=== PATIENT | male | born 1945 | race Caucasian/White ===

== ENCOUNTER 2017-01-27 12:55 | Emergency (ER) | payer MEDICARE, BC ==
[2017-01-27] MEDS ORDERED: NS 0.9% 1000 ML* 1,000 ML IV ONE ×2 (13:42→17:49)
[2017-01-27 14:44] LABS: Hematocrit 44 % (42-52); Hemoglobin 14.5 g/dl (14.0-18.0); Mean Corpuscular HGB Conc 33 g/dl (31-36); Mean Corpuscular Hemoglobin 26 pg (27-31); Mean Corpuscular Volume 81 fL (80-94); Mean Platelet Volume 8 um3 (7.4-10.4); Red Blood Count 5.51 10^6/ul (4.0-5.4); Red Cell Distribution Width 15 % (10.5-15); White Blood Count 10.5 10^3/ul (3.5-10.8)
[2017-01-27 14:46] LABS: Add Diff/Slide Review? Slide Review Added; Comments Flag Yes
[2017-01-27 15:05] LABS: Albumin 3.8 g/dL (3.2-5.2); BUN/Creatinine Ratio 17.7 (8-20); Calcium 9.1 mg/dL (8.6-10.3); EGFR African American 82.3 (>60); Globulin 2.8 g/dL (2-4); Potassium 3.7 mmol/L (3.5-5.0); Total Bilirubin 0.7 mg/dL (0.2-1.0); Total Protein 6.6 g/dL (6.4-8.9)
[2017-01-27] MEDS ORDERED: Iohexol 300* (CONTRAST) 10 ML SDV IV ONE (15:22)
[2017-01-27 15:39] LABS: TSH (Thyroid Stimulating Horm) 0.16 mcIU/mL (0.34-5.60)
[2017-01-27 15:46] LABS: Free T4 0.84 ng/dL (0.61-1.12)
--- NOTE | 2017-01-27 15:49 | RAD ---
CLINICAL HISTORY: Hypotension, abdominal pain COMPARISON: June 02, 2015 TECHNIQUE: Multiple contiguous axial CT scans were obtained of the abdomen and pelvis after the administration of intravenous contrast. Coronal and sagittal multiplanar reformations are submitted for review. Oral contrast was administered. Delayed images were obtained through the abdomen and pelvis. FINDINGS: LUNG BASES: There is minimal dependent atelectasis of the right lung base LIVER: The liver is normal in shape, size, contour, and attenuation. BILE DUCTS: There is no intrahepatic or extrahepatic biliary dilatation. GALLBLADDER: The gallbladder is normal, without pericholecystic inflammatory change. PANCREAS: The pancreas is normal, without mass or ductal dilatation. SPLEEN: Normal in size and appearance. UPPER GI TRACT: Evaluation of the gastrointestinal tract is limited by incomplete gastric distention. There is a 2.5 cm diverticulum of the second stage of the duodenum. SMALL BOWEL AND MESENTERY: An ileostomy is noted. There is no obstruction. COLON: The patient appears to be status post colectomy. ADRENALS: Normal bilaterally. KIDNEYS: There is a stable left renal cyst. There is no appreciable hydronephrosis or nephrolithiasis. BLADDER: The bladder is smooth in contour. PELVIC ORGANS: The prostate is diffusely enlarged. The seminal vesicles are symmetric. AORTA: There is calcific atherosclerotic disease of the abdominal aorta and its branches, without aneurysmal dilatation IVC: Unremarkable LYMPH NODES: There is no lymphadenopathy by size criteria. ABDOMINAL WALL: There is an ileostomy. BONES AND SOFT TISSUES: Degenerative changes are noted OTHER: None IMPRESSION: 1. STATUS POST COLECTOMY AND ILEOSTOMY. 2. NO OBSTRUCTION. 3. ENLARGED PROSTATE. 4. ATHEROSCLEROSIS. 5. NO ACUTE CT PATHOLOGY OF THE VISUALIZED ABDOMEN OR PELVIS
[2017-01-27 16:10] LABS: Urine Bacteria Absent (Absent); Urine Bilirubin Negative (Negative); Urine Glucose Negative (Negative); Urine Nitrite Negative (Negative)
[2017-01-27] MEDS ORDERED: Hydrocortisone INJ* 250 MG VIAL IV ONE (16:30)
[2017-01-27] MEDS ORDERED: Hydrocortisone INJ* 100 MG VIAL IV ONE (17:32)
--- NOTE | 2017-01-27 17:52 | RAD ---
INDICATION: Fever COMPARISON: Similar chest x-ray April 08, 2016 TECHNIQUE: PA and lateral views of the chest were obtained. FINDINGS: The heart and mediastinum are normal in size and contour. Stable calcified atherosclerosis is seen overlying the arch of the aorta. The lungs are grossly clear. There is no evidence of large pleural effusion. Visualized bones are normal for the patient's age. There is no radiographic evidence of free air beneath the diaphragm IMPRESSION: No radiographic evidence of acute cardiopulmonary disease.
[2017-01-27] MEDS ORDERED: Ondansetron TAB* 4 MG PO ONE (19:06)
[2017-01-27] MEDS ORDERED: Ondansetron ODT TAB* 4 MG ONE (19:06)
[2017-01-27 19:26] VITALS: BP 114/62
--- NOTE | 2017-01-27 23:35 | CONS ---
CONSULTATION REPORT: DATE OF CONSULT: 01/27/17 REQUESTING PHYSICIAN FOR CONSULT: Dr. Bernal. REASON FOR MEDICAL CONSULT: Evaluation for admission. HISTORY OF PRESENT ILLNESS: Mr. Alexandra is a 71-year-old male patient. He has a history of hyperlipidemia, Crohn's, Waldenstrom's macroglobulinemia, nephrolithiasis, primary sclerosing cholangitis, and a history of panhypopituitarism. He came in to the ER today. He says that yesterday, he was at an event. He was networking, he was talking a lot to different veterans , and unfortunately, he thinks he did not drink enough water. He typically drinks 4 to 6 pints of water a day. He only had 1 bottle during his event. He noticed that his urine output and ileostomy output had decreased significantly. He went home. He drank some water. He woke up in the morning, today had a stomach ache. He said the top part of his stomach was aching and felt crampy. He denied any fevers or chills, but he says the pain was discouraging. He actually tried to go to [place]. He had breakfast and he turned around and came back from [place]. When he got home, he still was not feeling good. So, he asked his to take him to the hospital to be evaluated. When he got in the car, he vomited. He threw up his hydrocortisone pill. He was concerned that he was pretty dehydrated. So, he decided to come in to the ER. He denied having any fevers or chills. He vomited once. He denied having any increased output. He said he had decreased output actually from the ileostomy and he came in. It was noted that he was hypotensive and there was concern because of his adrenal insufficiency and the fact that he appeared to be hypotensive and maybe had a viral gastroenteritis. So, we were asked to evaluate in consult for admission. PAST MEDICAL HISTORY: Significant for: 1. Hyperlipidemia. 2. Crohn's. 3. Waldenstrom's macroglobulinemia. 4. Nephrolithiasis. 5. Primary sclerosing cholangitis. 6. Panhypopituitarism. PAST SURGICAL HISTORY: The patient has had: 1. Ileostomy. 2. Appendectomy. 3. He has had partial pituitary tumor removal. 4. He has had cataracts. MEDICATIONS: Home meds according to his recall include: 1. Hydrocortisone, he takes 15 mg in the morning, 15 mg at noon, and 5 at bedtime. 2. He takes 1000 mg p.o. q.6 hours of Tylenol. 3. He takes calcium 1 tablet p.o. daily. 4. Vitamin C 500 mg daily. 5. Glucosamine 1000 mg daily. 6. Fluorouracil 5% topically daily. 7. Vitamin D 1000 units p.o. daily. 8. Maalox 600 mg p.o. daily as needed. 9. Synthroid 112 mcg daily. 10. Salicylic acid 1 application topically every other day as needed. 11. Multivitamin 1 tablet daily. 12. Toprol 25 mg daily. 13. Saline 0.65% both nares every 6 hours. ALLERGIES TO MEDICATIONS: Include no known drug allergies. FAMILY HISTORY: His mother had a history of CHF and TIA. Father had a stroke and diabetes. SOCIAL HISTORY: He does not smoke. Does not drink. Surrogate decision maker is his . REVIEW OF SYSTEMS: There is no documented fever. He denied having significant weight change. There was no double vision. He denies having any ear discharge. There was no rhinorrhea. No sore throat. No thyroid enlargement. Denies having any chest pain. There is no orthopnea, no nocturnal dyspnea. There was no abdominal pain. There was no nausea, no vomiting. No dysuria, no frequency. There was no loss of consciousness. No pruritus and no skin ulcerations. Review of 14 systems completed, all others negative. PHYSICAL EXAM: Initially when he came in, blood pressure of 94/55, now his blood pressure 108/61; pulse 66; respirations 18; O2 sat 96%; temperature 98.2. Generally, at this time, Mr. Alexandra is a 71-year-old male patient. He appears to be well nourished, well developed. He is sitting in the ER stretcher. He does not appear to be in any acute distress. HEENT: Head is atraumatic and normocephalic. Eyes: EOMs intact. Sclerae are anicteric and not pale. Throat : Oral mucosa appeared to be moist. No oropharyngeal erythema. Neck was supple. Heart: Sounds S1, S2. Regular rate and rhythm. No murmurs, rubs, or gallops. Lungs were clear to auscultation bilaterally. He had no wheezes, rales, or rhonchi. Abdomen was soft, flat, nontender. Bowel sounds present. Extremities: Pulses were 2+ throughout. He is able to move all 4 extremities with 5/5 strength. Neurologically, he is awake, he is alert and oriented x3. Tongue midline. Outfitter Cabin are equal. He had no gross focal deficits. His skin is intact. DIAGNOSTIC STUDIES/LAB DATA: Today revealed a WBC 10.5, RBC of 5.51, hemoglobin was 14.5, his hematocrit was 44, platelet count 153. Sodium was 138 , potassium 3.7, chloride of 106, bicarb 23, BUN 20, creatinine 1.13, glucose 97 , lactate 1.9, calcium 9.1. Total bili 0.7, AST 45, ALT 33, alk phos 75. Albumin 3.8, lipase 124. TSH of 0.16. Urine showed 1+ blood, 1+ rbc's. Serology is pending. He had a chest x-ray obtained today and on my review, I did not appreciate any acute disease. No radiographic evidence for acute cardiopulmonary disease. He did have an abdominal pelvis CT as well which revealed status post colectomy and ileostomy, no obstruction, enlarged prostate, atherosclerosis. No acute CT pathology of the visualized abdomen or pelvis. Old medical records were reviewed. ASSESSMENT AND PLAN: Mr. Alexandra is a 71-year-old male patient coming in to the ER today with complaints of abdominal discomfort with vomiting x1, found to be hypotensive in the ER, now responding to IV fluids. We were asked to evaluate in consult because of concern for hypotension and gastroenteritis. Recommendation at this point are: Dehydration: I suspect the culprit of why the patient was feeling lightheaded today was that he was probably dehydrated. He freely admits that he did not drink enough and his output was decreased. He says he was concerned because of the abdominal discomfort, which may be gastroenteritis. So, I think giving him 2 L of fluid which the ER has done, he has been responsive. He is eating now. As long as he eats and tolerates the food now that we are giving him, I think he will be safely discharged and I had told him to increase his hydrocortisone, double it for the next 2 days, and then have close followup with his primary. For his other chronic medical issues at this point, they appear to be stable. I will continue his medications as prescribed, follow up with his primary. I did recommend that he could go home with a double dose of his hydrocortisone and then follow up with Dr. Casas. I discussed the plan of care my attending, Dr. Agrawal; she is in agreement. TIME SPENT: On the consult was 60 minutes; greater than half the time was spent [id number] with the patient obtaining my history and physical, other half the time spent going over the plan of care with the patient and implementing plan of care. I did discuss the plan of care with my attending, Dr. Agrawal; she is in agreement. JULIENNE CASTRO NP ADDENDUM TO CONSULTATION REPORT: DATE OF CONSULT: 01/27/17 Mr. Alexandra is a 71-year-old male with history of panhypopituitarism, adrenal insufficiency as well as Waldenstrom macroglobulinemia. The patient also has ileostomy. He presented today with an apparent episode of abdominal pain and decreased stoma output. The patient vomited when en route to the hospital. His CT of the abdomen is unremarkable. He was hypotensive when he arrived to the hospital and that resolved after intravenous fluid hydration. His laboratory values are grossly unremarkable apart from very mild elevation of lipase. The patient at this point feels good and he wishes to go home. Most likely, the patient tolerates diet and fluids well after that. He is going to be discharged by one of the ER physicians. Please also note that the patient already doubled the dose of hydrocortisone as was previously directed by Dr. Narayan in the case of sickness. For further details the patient's presentation and plan, please see consultation report dictated by Julienne Castro NP, on 01/27/17 with which I agree. Matilda Agrawal MD CC: Dr. Casas; Dr. San; Dr. Narayan* [id number]/[facility] #: [id number]/[facility]PS #: [id number] [facility]ITALMick
--- NOTE | 2017-01-28 02:14 | CONS ---
CONSULTATION REPORT: DATE OF CONSULT: 01/27/17 ADDENDUM: Mr. Alexandra is a 71-year-old male with history of panhypopituitarism, adrenal insufficienc y as well as Waldenstrom macroglobulinemia. The patient also has ileostomy. He presented today wit h an apparent episode of abdominal pain and decreased stoma output. The patient vomited when en rou te to the hospital. His CT of the abdomen is unremarkable. He was hypotensive when he arrived to [facility] and that resolved after intravenous fluid hydration. His laboratory values are grossly unremarkable apart from very mild elevation of lipase. The patient at this point feels good and he wishes to go home. Most likely, the patient tolerates diet and fluids well after that. He is going to be discharged by one of the ER physicians. Please also note that the patient already doubled the dose of hydrocortisone as was previously direc tray by Dr. Narayan in the case of sickness. For further details the patient's presentation and plan, please see consultation report dictated by Jesus Mishra NP, on 01/27/17 with which I agree. [id number]/[facility] #: [id number]
--- NOTE | 2017-02-16 14:22 | ED ---
Alphonso Patino Anna, scribed for Bhargav Bernal MD on 01/27/17 at 1343 . Abdominal Pain/Male - HPI Summary HPI Summary: Patient is a 71 y/o male coming to [facility] presenting with lower middle abdominal pain that began today. The pain worsened, and he started shaking due to the pain , accompanied by chills and myalgia. His temperature elijah to 101.3 F, and he felt as though his BP dropped. He felt weak and dehydrated. He felt as if he could not drink because of the pain. He took his hydrocortisone medication, which did not alleviate the pain. He experienced one episode of emesis, and the pain was alleviated at that time. He is steroid-dependent because of a history of a pituitary tumor. His BP is usually 120/72. He has a little bit of ileostomy output and no urine output. Denies diarrhea, sores, and cough. He had a similar episode one week ago with intermittent shaking because of the pain, accompanied by chills. At that time, it was alleviated by wrapping up with blankets. Todays episode was worse than the previous episode. He is unaware of the cause or trigger. The patient is followed by Dr. San, oncologist, and Dr. Thakur, portfolio mgr. His history is significant for Crohns disease, an ileostomy, a pituitary tumor (removed), and Waldenstroms disease. His history is significant for a SBO, which was alleviated by the use of IV fluids. The patient had a flu shot this year. Patient medications were reviewed this visit. - History of Current Complaint Chief Complaint: EDAbdPain Stated Complaint: VOMITING,FEVER Time Seen by Provider: 01/27/17 13:40 Hx Obtained From: Patient, Family/Ham Facer - Accompanied by Onset/Duration: Resolved Timing: Constant Severity Initially: Moderate Severity Currently: None - Allergies/Home Medications Allergies/Adverse Reactions: Allergies Allergy/AdvReac Type Severity Reaction Status Date / Time SULFA AdvReac Intermediate VOMIT Uncoded 04/08/16 20:33 Home Medications: Home Medications Acetaminophen [Acetaminophen Extra Stren] 1,000 mg PO Q4HR PRN 01/27/17 [ History Confirmed 01/27/17] Ascorbic Acid TAB* [Vitamin C TAB*] 500 mg PO DAILY 01/27/17 [History Confirmed 01/27/17] Calcium Carbonate-Vitamin D [Calcium 600 + D] 1 tab PO DAILY 01/27/17 [History Confirmed 01/27/17] Glucosamine CAP (NF) 1,000 cap PO DAILY 01/27/17 [History Confirmed 01/27/17] Hydrocortisone TAB* [Cortef TAB*] 15 mg PO BID 01/27/17 [History Confirmed 01/27] Hydrocortisone TAB* [Cortef*] 5 mg PO QPM 01/27/17 [History Confirmed 01/27/17] Levothyroxine TAB* [Synthroid TAB*] 112 mcg PO DAILY 01/27/17 [History Confirmed 01/27/17] Metoprolol Succinate XL TAB* [Toprol XL TAB*] 25 mg PO DAILY 01/27/17 [History Confirmed 01/27/17] PMH/Surg Hx/FS Hx/Imm Hx Endocrine/Hematology History: Reports: Hx Blood Disorders - hx of leukemia , Waldenstroms disease, now in remission, Hx Thyroid Disease - HYPO, Other Endocrine/Hematological Disorders - waldenstrom macroglobulinemia Denies: Hx Diabetes Cardiovascular History: Reports: Hx Hypercholesterolemia Denies: Hx Hypertension, Hx Pacemaker/ICD, Other Cardiovascular Problems/ Disorders Respiratory History: Reports: Hx Sleep Apnea - NOT TESTED, Other Respiratory Problems/Disorders - HX CHILLS, UNSURE WHY, TAKES IBUPROFEN OR TYLENOL, THAN OK Denies: Hx Asthma GI History: Reports: Hx Crohn's Disease, Hx Hiatal Hernia, Other GI Disorders - 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, 1988 History: Reports: Hx Kidney Stones - IN PAST, Other Problems/Disorders - stones Denies: Hx Renal Disease Musculoskeletal History: Reports: Hx Osteoporosis - mild, Other Musculoskeletal History Denies: Hx Rheumatoid Arthritis Sensory History: Reports: Hx Contacts or Glasses, Hx Hearing Aid - does not wear , Hx Hearing Problem Denies: Hx Cataracts Opthamlomology History: Reports: Hx Contacts or Glasses Denies: Hx Cataracts Neurological History: Reports: Other Neuro Impairments/Disorders - INFREQUENT VIRTIGO Psychiatric History: Denies: Hx Panic Disorder - Cancer History Cancer Type, Location and Year: 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 skin graft interior nose Hx Anesthesia Reactions: Yes - SLOW TO WAKE UP - Immunization History Date of Tetanus Vaccine: up to date per pt Infectious Disease History: No Infectious Disease History: Denies: Traveled Outside the [place] in Last 30 Days - Family History Known Family History: Positive: Other - osteoperosis - Social History Lives: With Family Alcohol Use: None Alcohol Amount: 1 BEER PER MONTH Substance Use Type: Reports: None Smoking Status (MU): Former Smoker Type: Cigarettes Review of Systems Constitutional: Other - shaking, low BP Positive: Fever, Chills Negative: Erythema Negative: Sore Throat Negative: Chest Pain Negative: Shortness Of Breath, Cough Positive: Abdominal Pain, Vomiting. Negative: Diarrhea, Nausea Negative: dysuria, hematuria Positive: Myalgia. Negative: Edema Skin: Other - Denies sores Negative: Rash Neurological: Other - Denies dizziness Positive: Weakness All Other Systems Reviewed And Are Negative: Yes Physical Exam - Summary Physical Exam Summary: Constitutional: Well-developed, Well-nourished, Alert. (-) Distressed, Minimal ileostomy bag output Skin: Warm, Dry HENT: Normocephalic; Atraumatic Eyes: Conjunctiva normal Neck: Musculoskeletal ROM normal neck. (-) JVD, (-) Stridor, (-) Tracheal deviation Cardio: Rhythm regular, rate normal, Heart sounds normal; Intact distal pulses; The pedal pulses are 2+ and symmetric. Radial pulses are 2+ and symmetric. (-) Murmur Pulmonary/Chest wall: Effort normal. (-) Respiratory distress, (-) Wheezes, (-) Rales Abd: Soft, (-) Tenderness, (-) Distension, (-) Guarding, (-) Rebound Musculoskeletal: (-) Edema Lymph: (-) Cervical adenopathy Neuro: Alert, Oriented x3 Psych: Mood and affect Normal Triage Information Reviewed: Yes Vital Signs On Initial Exam: Initial Vitals Temp Pulse Resp BP Pulse Ox 98.5 F 87 20 99/55 97 01/27/17 13:02 01/27/17 13:02 01/27/17 13:02 01/27/17 13:02 01/27/17 13:02 Vital Signs Reviewed: Yes - Abel Coma Scale Coma Scale Total: 15 Diagnostics - Vital Signs Vital Signs Temp Pulse Resp BP Pulse Ox 01/27/17 13:35 86 95 01/27/17 13:33 93/53 01/27/17 13:04 98.2 F 93 20 99/55 96 01/27/17 13:02 98.5 F 87 20 99/55 97 - Laboratory Result Diagrams: 01/27/17 14:30 01/27/17 14:30 Lab Statement: Any lab studies that have been ordered have been reviewed, and results considered in the medical decision making process. - Radiology CXR Xray Interpretation: No Acute Changes Radiology Interpretation Completed By: Radiologist - IMPRESSION: No radiographic evidence of acute cardiopulmonary disease. - CT CT abd/pel CT Interpretation: No Acute Changes CT Interpretation Completed By: Radiologist - IMPRESSION: 1. STATUS POST COLECTOMY AND ILEOSTOMY. 2. NO OBSTRUCTION. 3. ENLARGED PROSTATE. 4. ATHEROSCLEROSIS. 5. NO ACUTE CT PATHOLOGY OF THE VISUALIZED ABDOMEN OR PELVIS Re-Evaluation - Re-Evaluation First Eval Re-Evaluation Time: 16:26 Comment: Pt is feeling lightheaded. IV bag disconnected from CT. Updated pt and family on results. Will order IV cortisone. Second Eval Re-Evaluation Time: 17:55 Comment: Discussed results and plan of care with patient and family. Patient and family are agreeable with plan. Third Eval Re-Evaluation Time: 18:51 Change: Improved Comment: Patient is observed to be ambulatory and feeling well. Abdominal Pain Fem Course/Dx - Course Assessment/Plan: Patient is a 71 y/o male coming to [facility] presenting with lower middle abdominal pain that began today, accompanied by fever, chills, myalgia, weakness, emesis, low BP. CT abd/pel to r/o SBO reveals no obstruction and acute CT pathology. UA reveals 1+ blood and 1+ RBC. Labs reveal RBC of 5.51, MCH of 26, AST of 45, Lipase of 124, TSH of 0.16. CXR reveals no radiographic evidence of acute cardiopulmonary disease. Discussed patient care with Dr. Jenkins, who accepts the patient for admission. After consultation with DIVYA Mishra, patient and family opt to be discharged home. - Diagnoses Provider Diagnoses: Adrenal insufficiency, Viral illness - Provider Notifications Discussed Care Of Patient With: Dr. Jaramillo (primary care physician) at 1724. Pt only sees Dr. Narayan for endocrinology. Dr. Jenkins (hospitalist) at 1746. Agrees to accept patient for admission. Discharge - Discharge Plan Condition: Stable Disposition: HOME Patient Education Materials: Abdominal Pain (ED) Referrals: Jose Alfredo Casas MD [Primary Care Provider] - Additional Instructions: Follow up with primary care provider within 48 hours. RETURN TO THE EMERGENCY DEPARTMENT FOR CHANGING OR WORSENING SYMPTOMS. The documentation as recorded by the Alphonso levi Anna accurately reflects the service I personally performed and the decisions made by , Bhargav Bernal MD.
== END 2017-01-27 19:24 | disposition home or self-care (01) ==
LOC: ED 12:55
DX: E27.40 Unspecified adrenocortical insufficiency (principal); B34.9 Viral infection, unspecified; R10.30 Lower abdominal pain, unspecified; R11.10 Vomiting, unspecified; R50.9 Fever, unspecified; R53.1 Weakness; Z87.891 Personal history of nicotine dependence
CPT/HCPCS: 36415; 71020; 74177; 80053; 81003; 81015; 82530; 82533; 83605; 83690; 84439; 84443; 85025; 87502; 96374; 99283; A9270-GY; J1720; Q9967

== ENCOUNTER 2017-11-28 10:13 | Emergency (ER) | payer MEDICARE, BC ==
[2017-11-28] MEDS ORDERED: Aspirin Low Dose CHEW TAB* 81 MG PO ONE (10:45)
[2017-11-28 11:11] LABS: ABS Basophils 0 10^3/ul (0-0.2); ABS Eosinophils 0.4 10^3/ul (0-0.6); ABS Lymphocytes 0.9 10^3/ul (1.0-4.8); ABS Monocytes 0.8 10^3/ul (0-0.8); ABS Neutrophils 2.8 10^3/ul (1.5-7.7); ABS Nucleated RBC 0 10^3/ul; Eosinophil % 8.9 % (0-6); Hematocrit 44 % (42-52); Hemoglobin 14.9 g/dl (14.0-18.0); Lymphocyte % 18.5 % (25-47); Mean Corpuscular HGB Conc 34 g/dl (31-36); Mean Corpuscular Hemoglobin 27 pg (27-31); Mean Corpuscular Volume 81 fL (80-94); Mean Platelet Volume 7.9 um3 (7.4-10.4); Nucleated Red Blood Cells % 0.1; Platelet Count 187 10^3/ul (150-450); Red Blood Count 5.48 10^6/ul (4.0-5.4); Red Cell Distribution Width 15 % (10.5-15)
[2017-11-28 11:22] LABS: INR 0.91 (0.77-1.02)
--- OUTSIDE RECORDS SUMMARY | 2017-11-28 11:40 | XMS REPORT ---
:1945 External Reference #:[id number] Author Organization [facility] Address [address] [place] [address] Phone [phone] Care Team Providers Name Role Phone Wei Cardona DDS Care Team Information Butcher All Round Unavailable Jose Alfredo Casas Primary Care Physician Unavailable Payers Type Date Identification Numbers Payment Provider Subscriber Medicare Primary Policy Number: [id number] [place] [facility] Randell Alexandra PayID: [id number] [address] [place] [address] Medigap Part B Policy Number: [id number] [place] [facility] Randell Alexandra PayID: [id number] [address] [place] [address] Problems Description No Information Family History Date Family Member(s) Problem(s) Comments General Cancer General Diabetes General Heart Disease Father Diabetes Father Heart Attack Father Heart Disease Father Colon Cancer Father Stroke Mother Pancrititis Mother Heart Murmur First Brother High Blood Pressure Paternal Grandfather Diabetes Paternal Grandfather Heart Attack Paternal Grandfather Heart Disease Paternal Grandfather Stroke Paternal Grandmother Diabetes Paternal Grandmother Breast Cancer Social History Type Date Description Comments Occupation Career Consulant Cigarette Use Never Smoked Cigarettes Cigars Never Smoked Cigars Pipe Former Pipe Smoker, Smoked 2 Pipes Daily quit age 28 Smokeless Tobacco Never Used Smokeless Tobacco ETOH Use Current Alcohol Use Occasionally Smoking Patient is a former smoker Allergies, Adverse Reactions, Alerts Date Description Reaction Status Severity Comments 05/31/2007 NKDA active Medications Medication Date Status Form Strength Qnty SIG Indications Ordering Provider Androgel Pump / Active Gel 20.25mg/Ac Zurdo Narayan 0000 t (1.62%) M.DAzalia Hydrocortisone / Active Tablets 5mg Zurdo Narayan 0000 M.D. Levothyroxine 00/ Active Tablets 125mcg Zurdo Narayan Sodium 0000 M.D. Fish Oil / Active Capsules 1200mg 1 by Unknown Burp-Less 0000 mouth every day Glucosamine / Active Capsules 1500Com 1 by Unknown Chondroitin 1500 0000 mouth Complex every day Vitamin C / Active Capsules 500mg 1 by Unknown 0000 mouth twice a day Vitamin D / Active Tablets 1000Unit 1 by Unknown 0000 mouth every day Magnesium / Active Tablets 250mg daily Unknown 0000 Calcium 600+D / Active Tablets 600-400mg- Unknown High Potency 0000 Unit Augmentin 03/28/ Hx Tablets 875-125mg 20tabs 1 po bid 784.7 Antoine Mcgovern 2010 - Christaina 11/12/ Tim 2017 Keflex 07/06/ Hx Capsules 500mg 7days 1 by 784.7 Antoine Mcgovern 2006 - mouth 3 Christiana 03/28/ times a Tim 2010 day Bacitracin 05/31/ Hx 1Tube apply to 784.Nallely Mcgovern Ointment 2006 - rim of Christiana Tim bang 2006 nostril 2 x day. Meclizine HCL / Hx Unknown - 2010 Amoxicillin / Hx Unknown - 2010 Hydrocodone-Apap / Hx Unknown - 2010 Avodart / Hx Unknown 0000 - 2017 Vital Signs Date Vital Result Comment 11/13/2017 Weight 206.00 lb Weight in kg's 93.442 Height 70 inches 5'10" Height in cm's 177.8 cm BMI (Body Mass Index) 29.6 kg/m2 03/28/2011 BP Systolic 145 mmHg BP Diastolic 98 mmHg Heart Rate 75 /min Respiratory Rate 16 /min 06/22/2007 BP Systolic 107 mmHg BP Diastolic 72 mmHg Heart Rate 86 /min Respiratory Rate 16 /min 05/31/2007 BP Systolic 132 mmHg BP Diastolic 82 mmHg Heart Rate 91 /min Respiratory Rate 16 /min Results Test Date Test Result H/L Range Note Comp Metabolic Panel 03/28/2011 Sodium 135 mmol/L 135-145 Potassium 3.9 mmol/L 3.5-5.0 Chloride 103 mmol/L 101-111 Co2 (Carbon Dioxide) 22.0 mmol/L 22-32 Anion Gap 10.0 mmol/L 2-11 1 Glucose 92 mg/dL 70-100 BUN 19 mg/dL 6-24 Creatinine 1.10 mg/dL 0.50-1.40 One Over Creatinine 0.90 BUN/Creatinine Ratio 17.3 8-20 Calcium 10.0 mg/dL High 8.1-9.9 Total Protein 11.7 GM/DL High 6.2-8.1 Albumin 3.2 GM/DL 3.2-5.2 Globulin 8.5 GM/DL High 2-4 Albumin/Globulin Ratio 0.4 Low 1-3 Bilirubin Total 0.6 mg/dL 0.4-1.5 2 Alkaline Phosphatase 48 U/L 39-117 Alt (SGPT) 24 U/L 17-63 Ast (Sgot) 25 U/L 12-42 eGFR Non- 67.2 > 60 eGFR 86.4 > 60 3 CBC With Manual Diff 03/28/2011 White Blood Count 4.0 CUMM Low 4.8-10.8 Red Cell Count 3.47 CUMM Low 4.6-6.2 Hemoglobin 10.6 g/dL Low 14.0-18.0 Hematocrit 31 % Low 42-52 Mean Corpuscular Volume 89 um3 80-94 Mean Corpuscular Hemoglob 31 pg 27-31 Mean Corpuscular HGB Cone 35 g/dL 32-36 Redcell Distribution WDTH 15 % 10.5-15 Platelet Count 203 CUMM 150-450 Mean Platelet Volume 6.9 um3 Low 7.4-10.4 Polysegmented Neutrophil 73 % 38-83 Lymphocyte 18 % Low 25-47 Monocyte 8 % 0-13 Eosinophil 1 % 0-6 Absolute Neutrophil Count 2.9 Manual Diff Comments ROULEAUX Anisocytosis SLIGHT Immunoglobulins Serum Quant 03/28/2011 Iga 68 mg/dL 61-356 Igm 7230 mg/dL 37-286 Igg 350 mg/dL 767-1590 4 Protein Electrophoresis Serum 03/28/2011 Albumin 3.86 GM/DL 3.0-4.35 Alpha 1 0.32 GM/DL 0.09-0.33 Alpha 2 1.07 GM/DL 0.59-1.18 Beta 0.72 GM/DL 0.68-1.02 Gamma 5.43 GM/DL High 0.76-1.60 Albumin % 33.9 % Low 46-63 Alpha 1 % 2.8 % 1.2-5.3 Alpha 2 % 9.4 % 9-17 Beta % 6.3 % Low 10-16 Gamma % 47.6 % High 12-22 A/G Ratio 0.5 Low 0.9-2 Total Protein 11.4 GM/DL High 6.2-8.1 M Blue Gamma Region 4.43 GM/DL Spep Comments (SEE NOTE) 5 Laboratory test finding 03/28/2011 Viscosity 3.3 cpoise <=1.5 6 1 Anion gap measurement may be of limited value in the presence of any alkalosis, especially in a combined acid base disorder. . 2 A metabolite of Naproxen, O-desmethylnaproxen, has been shown to interfere with the [place] method for measuring total bilirubin. Samples from patients who have taken Naproxen have shown spurious elevation in total bilirubin levels. 3 Because ethnic data is not always readily available, this report includes an eGFR for both -Americans and non- Americans. The National Kidney Disease Education Program (NKDEP) does not endorse the use of the MDRD equation for patients that are not between the ages of 18 and 70, are , have extremes of body size, muscle mass, or nutritional status, or are non- or non-. According to the National Kidney Foundation, irrespective of diagnosis, the stage of the disease is based on the level of kidney function: Stage Description GFR(mL/min/1.73 m(2)) 1 Kidney damage with normal or decreased GFR 90 2 Kidney damage with mild decrease in GFR 60-89 3 Moderate decrease in GFR 30-59 4 Severe decrease in GFR 15-29 5 Kidney failure <15 (or dialysis) 4 Test Performed by: [facility] Dpt of Lab Med and Pathology [address] [place] [address] Fingerprint Expert: Saleem Bergman III, M.D. 5 KNOWN IGM KAPPA MONOCLPNAL PROTEIN 6 This test was developed and its performance characteristics determined by Laboratory Medicine and Pathology, [facility]. It has not been cleared or approved by the U.S. Food and Drug Administration. Test Performed by: [facility] Dpt of Lab Med and Pathology [address] [place] [address] Fingerprint Expert: Saleem Bergman III, M.D. Procedures Date CPT Code Description Status 12/06/2011 95134 Nasal Endoscopy, Diagnostic Completed 12/06/2011 72328 Cautery Of Mucosa Of Turbinates Completed 03/28/2011 92047 Contol Nasal Hemorrhage, Anterior, Simple Completed 08/01/2007 51976 Septal Dermatoplasty Completed 08/01/2007 49833 Skin Graft Donor Site Completed 07/21/2007 01668 Control Nasal Hemorrhage (Extensive Cautery/Packing) Completed Any Method 07/08/2007 47141 Endoscopic Nasal Cautery Completed 06/22/2007 27524 Endoscopic Nasal Cautery Completed 06/07/2007 39395 Endoscopic Nasal Cautery Completed 05/31/2007 07416 Contol Nasal Hemorrhage, Anterior, Simple Completed Encounters Type Date Location Provider CPT E/M Dx Office Visit 11/13/2017 2:45p Luzma,After 09/04/07 Antoine Villeda 91752 K13.3 M.D. Office Visit 03/28/2011 2:30p Luzma,After 09/04/07 [place] [address] 784.7 200.80 Office Visit 2007 3:30p Luzma,After 09/04/07 [place] [address] 784.7 Office Visit 07/16/2007 10:15a Luzma,After 09/04/07 Antoine Villeda 68729 784.7 M.D. Office Visit 07/12/2007 2:30p Luzma,After 09/04/07 [place] [address] 784.7 200.80 Office Visit 06/28/2007 1:00p Luzma,After 09/04/07 [place] [address] 784.7 200.80 Office Visit 06/22/2007 10:30a Luzma,After 09/04/07 [place] [address] 784.7 200.80 Office Visit 06/15/2007 1:00p Luzma,After 09/04/07 Antoine Villeda 41362 784.7 M.D. 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 Cardona who saw roldan discoloration of his tongue and wanted it examined.Today he looks normal. 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
--- NOTE | 2017-11-28 11:56 | RAD ---
HISTORY: Chest pain COMPARISONS: January 27, 2017 VIEWS: 1: frontal portable view of the chest at 11:30 AM FINDINGS: LINES AND TUBES: None. CARDIOMEDIASTINAL SILHOUETTE: The cardiomediastinal silhouette is normal for portable technique. PLEURA: The costophrenic angles are sharp. No pleural abnormalities are noted. LUNG PARENCHYMA: The lungs are clear. ABDOMEN: The upper abdomen is clear. There is no subphrenic gas. BONES AND SOFT TISSUES: No bone or soft tissue abnormalities are noted. IMPRESSION: NO ACTIVE CARDIOPULMONARY DISEASE.
[2017-11-28 12:02] LABS: EGFR Non-African American 55.7 (>60)
[2017-11-28] MEDS ORDERED: Metoprolol Succinate XL TAB* 25 MG PO ONE (13:19)
[2017-11-28 14:52] VITALS: BP 123/91
--- NOTE | 2017-11-28 15:00 | ED ---
Donnell Patino Jennifer, scribed for Neftali Nails on 11/28/17 at 1043 . Palpitations / Dysrhythmia - HPI Summary HPI Summary: The patient is a 72 year old male who complains of 3-4 episodes of palpitations since 08:30 this morning. The patient described that it feels like theres a heavy weight on his chest and he is short of breath. He was getting ready for the day when the first episode occurred. Sitting down alleviated his pain; however, he decided to come to the ED when it began again at around 10:15. He additionally complains of sweatiness but denies nausea, dizziness. He denies chest pain or heaviness in the ED. He adds that he has had this issue before and was previously prescribed Metoprolol. - History of Current Complaint Chief Complaint: EDDysrhythmPalp Time Seen by Provider: 11/28/17 10:34 Hx Obtained From: Patient Onset/Duration: Sudden Onset, Lasting Hours - 2 hours, Other - Denies palpitations in ED Timing: Intermittent Episodes Lasting: - about 3-4 episodes for the past 2 hours Severity Initially: Mild Severity Currently: None Character: Fast, Irregular Aggravating: Nothing Alleviating: Rest Associated Signs & Symptoms: Negative - Dizziness, nausea, Chest Pain - "heavy weight" on chest, Shortness of Breath - Allergy/Home Medications Allergies/Adverse Reactions: Allergies Allergy/AdvReac Type Severity Reaction Status Date / Time No Known Allergies Allergy Verified 11/28/17 10:26 Home Medications: Home Medications Magnesium Oxide TAB* [MagOx 400 TAB*] 325 mg PO DAILY 11/28/17 [History Confirmed 11/28/17] [place]-3 Fatty Acids (Nf) [Fish Oil (NF)] 1,000 mg PO DAILY 11/28/17 [History Confirmed 11/28/17] Testosterone [Androgel] 2 units TD DAILY 11/28/17 [History Confirmed 11/28/17] PMH/Surg Hx/FS Hx/Imm Hx Endocrine/Hematology History: Reports: Hx Blood Disorders - hx of leukemia , now in remission, Hx Thyroid Disease - HYPO, Other Endocrine/Hematological Disorders - waldenstrom macroglobulinemia Denies: Hx Diabetes Cardiovascular History: Reports: Hx Hypercholesterolemia, Other Cardiovascular Problems/Disorders - OCCASSIONAL ARRHYTHMIA Denies: Hx Hypertension, Hx Pacemaker/ICD Respiratory History: Reports: Hx Sleep Apnea - NOT TESTED, Other Respiratory Problems/Disorders - HX CHILLS, UNSURE WHY, TAKES IBUPROFEN OR TYLENOL, THAN OK Denies: Hx Asthma GI History: Reports: Hx Crohn's Disease, Hx Hiatal Hernia, Other GI Disorders - 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, 1988 History: Reports: Hx Kidney Stones - IN PAST, Other Problems/Disorders - stones Denies: Hx Renal Disease Musculoskeletal History: Reports: Hx Osteoporosis - mild, Other Musculoskeletal History Denies: Hx Rheumatoid Arthritis Sensory History: Reports: Hx Contacts or Glasses, Hx Hearing Problem Denies: Hx Cataracts, Hx Hearing Aid Opthamlomology History: Reports: Hx Contacts or Glasses Denies: Hx Cataracts Neurological History: Reports: Other Neuro Impairments/Disorders - INFREQUENT VERTIGO Psychiatric History: Denies: Hx Panic Disorder - Cancer History Cancer Type, Location and Year: waldenstroms non hodgekins lymphoma Hx Chemotherapy: Yes - 09/2011 - Surgical History Surgery Procedure, Year, and Place: appendectomy;. Total colectomy with Ileostomy;. skin graft interior nose;. pituitary tumor removed;. kidney stones removed; Hx Anesthesia Reactions: Yes - SLOW TO WAKE UP - Immunization History Date of Tetanus Vaccine: up to date per pt Infectious Disease History: No Infectious Disease History: Denies: Traveled Outside the [place] in Last 30 Days - Family History Known Family History: Positive: Cardiac Disease - Father, grandfather, Other - osteoporosis - Social History Alcohol Use: None Alcohol Amount: 1 BEER PER MONTH Substance Use Type: Reports: None Smoking Status (MU): Former Smoker Type: Cigarettes Review of Systems Positive: Palpitations, Chest Pain - heaviness Positive: Shortness Of Breath Negative: Nausea Neurological: Negative - Dizziness All Other Systems Reviewed And Are Negative: Yes Physical Exam - Summary Physical Exam Summary: Appearance: Well appearing, no pain distress Skin: warm, dry, reflects adequate perfusion Head/face: normal Eyes: EOMI, NOLAN ENT: normal Neck: supple, non-tender Respiratory: CTA, breath sounds present Cardiovascular: RRR, pulses symmetrical ~ Abdomen: non-tender, soft Bowel: present Musculoskeletal: normal, strength/ROM intact Neuro: normal, sensory motor intact, A&Ox3 Triage Information Reviewed: Yes Vital Signs On Initial Exam: Initial Vitals Temp Pulse Resp BP Pulse Ox 98.2 F 87 20 147/94 100 11/28/17 10:27 11/28/17 10:27 11/28/17 10:27 11/28/17 10:27 11/28/17 10:27 Vital Signs Reviewed: Yes Diagnostics - Vital Signs Vital Signs Temp Pulse Resp BP Pulse Ox 11/28/17 10: 98.2 F 87 20 147/94 100 - Laboratory Lab Results: Lab Results 11/28/17 11/28/17 11/28/17 Range/Units 11:00 11:00 11:00 WBC 5.0 (3.5-10.8) 10^3/ul RBC 5.48 H (4.0-5.4) 10^6/ul Hgb 14.9 (14.0-18.0) g/dl Hct 44 (42-52) % MCV 81 (80-94) fL MCH 27 (27-31) pg MCHC 34 (31-36) g/dl RDW 15 (10.5-15) % Plt Count 187 (150-450) 10^3/ul MPV 7.9 (7.4-10.4) um3 Neut % (Auto) 56.3 (38-83) % Lymph % (Auto) 18.5 L (25-47) % Fillmore % (Auto) 15.6 H (0-7) % Eos % (Auto) 8.9 H (0-6) % Baso % (Auto) 0.7 (0-2) % Absolute Neuts (auto) 2.8 (1.5-7.7) 10^3/ul Absolute Lymphs (auto) 0.9 L (1.0-4.8) 10^3/ul Absolute Monos (auto) 0.8 (0-0.8) 10^3/ul Absolute Eos (auto) 0.4 (0-0.6) 10^3/ul Absolute Basos (auto) 0 (0-0.2) 10^3/ul Absolute Nucleated RBC 0 10^3/ul Nucleated RBC % 0.1 INR (Anticoag Therapy) (0.77-1.02) APTT (26.0-36.3) seconds Sodium 139 (139-145) mmol/L Potassium 4.7 (3.5-5.0) mmol/L Chloride 105 (101-111) mmol/L Carbon Dioxide 27 (22-32) mmol/L Anion Gap 7 (2-11) mmol/L BUN 16 (6-24) mg/dL Creatinine 1.27 H (0.67-1.17) mg/dL Est GFR ( Amer) 71.7 (>60) Est GFR (Non-Af Amer) 55.7 (>60) BUN/Creatinine Ratio 12.6 (8-20) Glucose 110 H (70-100) mg/dL Lactic Acid (0.5-2.0) mmol/L Calcium 10.2 (8.6-10.3) mg/dL Magnesium 2.1 (1.9-2.7) mg/dL Total Bilirubin 0.50 (0.2-1.0) mg/dL AST 21 (13-39) U/L ALT 20 (7-52) U/L Alkaline Phosphatase 47 (34-104) U/L Troponin I 0.00 (<0.04) ng/mL B-Natriuretic Peptide 18 ( - 100) pg/mL Total Protein 7.8 (6.4-8.9) g/dL Albumin 4.1 (3.2-5.2) g/dL Globulin 3.7 (2-4) g/dL Albumin/Globulin Ratio 1.1 (1-3) TSH 0.09 L (0.34-5.60) mcIU/mL 11/28/17 11/28/17 11/28/17 Range/Units 11:00 11:00 13:53 WBC (3.5-10.8) 10^3/ul RBC (4.0-5.4) 10^6/ul Hgb (14.0-18.0) g/dl Hct (42-52) % MCV (80-94) fL MCH (27-31) pg MCHC (31-36) g/dl RDW (10.5-15) % Plt Count (150-450) 10^3/ul MPV (7.4-10.4) um3 Neut % (Auto) (38-83) % Lymph % (Auto) (25-47) % Fill[place] % (Auto) (0-7) % Eos % (Auto) (0-6) % Baso % (Auto) (0-2) % Absolute Neuts (auto) (1.5-7.7) 10^3/ul Absolute Lymphs (auto) (1.0-4.8) 10^3/ul Absolute Monos (auto) (0-0.8) 10^3/ul Absolute Eos (auto) (0-0.6) 10^3/ul Absolute Basos (auto) (0-0.2) 10^3/ul Absolute Nucleated RBC 10^3/ul Nucleated RBC % INR (Anticoag Therapy) 0.91 (0.77-1.02) APTT 35.2 (26.0-36.3) seconds Sodium (139-145) mmol/L Potassium (3.5-5.0) mmol/L Chloride (101-111) mmol/L Carbon Dioxide (22-32) mmol/L Anion Gap (2-11) mmol/L BUN (6-24) mg/dL Creatinine (0.67-1.17) mg/dL Est GFR ( Amer) (>60) Est GFR (Non-Af Amer) (>60) BUN/Creatinine Ratio (8-20) Glucose (70-100) mg/dL Lactic Acid 2.7 H* (0.5-2.0) mmol/L Calcium (8.6-10.3) mg/dL Magnesium (1.9-2.7) mg/dL Total Bilirubin (0.2-1.0) mg/dL AST (13-39) U/L ALT (7-52) U/L Alkaline Phosphatase (34-104) U/L Troponin I 0.01 (<0.04) ng/mL B-Natriuretic Peptide ( - 100) pg/mL Total Protein (6.4-8.9) g/dL Albumin (3.2-5.2) g/dL Globulin (2-4) g/dL Albumin/Globulin Ratio (1-3) TSH (0.34-5.60) mcIU/mL Result Diagrams: 11/28/17 11:00 11/28/17 11:00 Lab Statement: Any lab studies that have been ordered have been reviewed, and results considered in the medical decision making process. - Radiology CXR Xray Interpretation: No Acute Changes - NO ACTIVE CARDIOPULMONARY DISEASE. Dr. Nails has reviewed this report. Radiology Interpretation Completed By: Radiologist - EKG 10:35 Cardiac Rate: NL EKG Rhythm: Sinus Rhythm - 80 BPM EKG Comparison: No Significant Change Course/Dx - Course Course Of Treatment: The patient is a 72 year old male who complains of 3-4 episodes of palpitations since 08:30 this morning. He complains of a heavy weight on his chest and shortness of breath. Bloodwork was obtained. CXR and EKG were obtained. The patient is diagnosed with atypical chest pain, tachycardia, and palpitations. I consulted with Dr. Thakur, cardiology, who recommended starting metaprolol, repeating second cardiac enzyme, discharging the patient, and f/u as outpatient. - Diagnoses Differential Diagnosis/HQI/PQRI: Positive: Coronary Artery Disease, Paroxymal SVT, Other - mi/chf Provider Diagnoses: Atypical chest pain, Tachycardia, Palpitations - Physician Notifications Discussed Care Of Patient With: Everette Thakur Time Discussed With Above Provider: 13:17 Instructed by Provider To: Other - I spoke with Dr. Thakur, cardiology, who recommends that the patient start Metaprolol, repeat second cardiac enzyme, discrhage, and f/u as outpatient. Discharge - Sign-Out/Discharge Documenting (check all that apply): Discharge - Discharge Plan Condition: Stable Disposition: HOME Patient Education Materials: Chest Pain (ED), Heart Palpitations (ED), Tachycardia (ED) Referrals: Everette Thakur MD [Medical Doctor] - As Soon As Possible Additional Instructions: Follow up with Dr. Salazar, cardiology, as soon as possible. Return to the emergency department for any new or worsening symptoms. - Billing Disposition and Condition Condition: STABLE Disposition: HOME The documentation as recorded by the Donnell levi Jennifer accurately reflects the service I personally performed and the decisions made by Jaqui jessica Emmanuel.
== END 2017-11-28 15:18 | disposition home or self-care (01) ==
LOC: ED 10:13
DX: R07.89 Other chest pain (principal); R00.0 Tachycardia, unspecified; R00.2 Palpitations; R06.02 Shortness of breath; Z85.6 Personal history of leukemia; E03.9 Hypothyroidism, unspecified; E78.00 Pure hypercholesterolemia, unspecified; K50.90 Crohn's disease, unspecified, without complications; Z87.442 Personal history of urinary calculi; Z87.891 Personal history of nicotine dependence
CPT/HCPCS: 36415; 71045; 80053; 83605; 83735; 83880; 84443; 84484; 85025; 85610; 85730; 93005; 99284; A9270-GY

== ENCOUNTER 2018-01-23 06:15 | Observation (INO) | payer MEDICARE, BC ==
[~2018-01-23 06:15] MED LIST: Buffered Lidocaine 0.9% SYRIN* 5 ML/SYR SYRINGE INTRADERM ONE; Sodium Citrate/Citric Acid* 15 ML UDC PO ONE
[2018-01-23] MEDS ORDERED: Sodium Citrate/Citric Acid* 15 ML UDC ONE (06:57)
[2018-01-23] MEDS ORDERED: ceFAZolin 2 GM PREMIX (*) 2 GM/50 ML BAG IVPB ONE (06:57)
[2018-01-23] MEDS ORDERED: Buffered Lidocaine 0.9% SYRIN* 5 ML/SYR SYRINGE ONE (06:58)
[2018-01-23] MEDS ORDERED: Thrombin 5,000 UNITS* 1 APPLIC KIT - topical use - TOPICAL ONE (07:00)
[2018-01-23] MEDS ORDERED: Lidocaine 1% MPF wEPI 200,000* 30 ML SDV ONE (07:00)
[2018-01-23] MEDS ORDERED: Bacitracin IV* 50,000 UNITS INJ ONE (07:00)
[2018-01-23] MEDS ORDERED: Lidocaine 2% PF * 5 ML VIAL ONE (07:28)
[2018-01-23] MEDS ORDERED: Propofol* 10 MG/ML 20 ML BTL IV PUSH ONE (07:28)
[2018-01-23] MEDS ORDERED: Rocuronium* 10 MG/ML VIAL ONE (07:29)
[2018-01-23] MEDS ORDERED: fentaNYL* 50 MCG/ML 2 ML VIAL (100 MCG VIAL) ONE ×2 (07:30→09:13)
[2018-01-23] MEDS ORDERED: EPHEDrine (Pressors)* 50 MG/ML VIAL ONE (08:21)
[2018-01-23] MEDS ORDERED: Ondansetron INJ* 2 MG/ML VIAL IV PRN ×2 (08:32→09:03)
[2018-01-23] MEDS ORDERED: Naloxone* 0.4 MG/ML 1 ML VIAL IV PRN (08:32)
[2018-01-23] MEDS ORDERED: Neostigmine Methylsulfate* 1 MG/ML 10 ML VIAL (1 mg/ml) ONE (08:37)
[2018-01-23] MEDS ORDERED: Glycopyrrolate IV* 0.2 MG/ML 1 ML VIAL ONE (08:37)
[2018-01-23] MEDS ORDERED: Acetaminophen TAB* 325 MG PO PRN (09:03)
[2018-01-23] MEDS ORDERED: Magnesium Hydroxide LIQ* 30 ML UDC PO PRN (09:03)
[2018-01-23] MEDS: fentaNYL* 50 MCG/ML 2 ML VIAL (100 MCG VIAL) IV PRN ×2 (09:13→09:29)
--- NOTE | 2018-01-23 10:34 | RAD ---
HISTORY: Lumbar discectomy COMPARISONS: None VIEWS: 1 , portable intraoperative lateral view of the lumbar spine at 8:04 AM FINDINGS: A single portable view of the lumbar spine performed for localization during spinal surgery demonstrates a metallic probe opposite of L4-L5 counting from L5 as the last lumbar type vertebral body. IMPRESSION: LIMITED PORTABLE VIEW OF THE SPINE FOR LOCALIZATION DURING SPINAL SURGERY
[2018-01-23] MEDS: HYDROcodone/ACETAMIN 5-325 MG* 1 TAB PO PRN ×2 (10:48→18:37)
[2018-01-23] MEDS ORDERED: Hydrocortisone TAB* 5 MG PO SCH ×2 (12:00→18:00)
[2018-01-23] MEDS ORDERED: Dexamethasone TAB* 4 MG PO ONE (14:00)
[2018-01-23] MEDS ORDERED: Metoprolol Succinate XL TAB* 25 MG PO SCH (18:00)
[2018-01-24] MEDS: HYDROcodone/ACETAMIN 5-325 MG* 1 TAB PO PRN ×3 (05:06→09:23)
--- NOTE | 2018-01-24 08:19 | PN ---
Progress Note - Progress Note Date of Service: 01/24/18 SOAP: Subjective: [S/p lumbar discectomy L4-5 left, POD #1. Feeling well, complains of bilateral hips soreness. Ambulating independently around the unit. Denies lower extremity pain, and numbness. ] Objective: [ Vital Signs: Temp Pulse Resp BP Pulse Ox 97.6 F 68 18 123/71 99 01/24/18 03:11 01/24/18 03:11 01/24/18 06:00 01/24/18 03:11 01/24/18 06:00 General: Alert and oriented, laying comfortably in bed. Neuro: Motor and sensory intact. Incision: Intact with ankit. Dressing clean.] Assessment: [Satisfactory post-op. Pain well controlled. ] Plan: [1. Discharge home today. 2. Discharge instructions discussed with the patient. ]
[2018-01-24 08:34] VITALS: BP 122/64
[2018-01-24] MEDS ORDERED: Levothyroxine TAB* 125 MCG TAB PO SCH (09:00)
[2018-01-24] MEDS ORDERED: Hydrocortisone TAB* 5 MG PO SCH (09:00)
--- NOTE | 2018-01-25 06:20 | OP ---
DATE OF OPERATION: 01/23/18 - ROOM #333 DATE OF : 45 SURGEON: Ramesh Sewell MD SEWING INSPECTOR: DIVYA Higuera ANESTHESIA: General. PRE-OP DIAGNOSIS: Herniated nucleus pulposus, L4-5 on the left. POST-OP DIAGNOSIS: Herniated nucleus pulposus, L4-5 on the left. OPERATIVE PROCEDURE: Partial hemilaminectomy L4-5 on the left, excision of herniated nucleus pulposus with microdissection. DESCRIPTION OF PROCEDURE: After satisfactory general anesthesia was obtained, the patient was placed on the operating table in a prone position with the chest supported on the Paco frame and the back slightly flexed. The lumbar region was then clipped, prepped, and draped in a sterile manner for lumbar exposure, and a skin incision outlined from L4 to L5. This incision was infiltrated with 1% Xylocaine with epinephrine, after which it was turned down sharply to the level of the lumbar fascia. The fascia was divided along the spinous processes of L4 and L5 and the paraspinal musculature was stripped away utilizing the periosteal elevator and monopolar cautery. An intraoperative x- ray was obtained verifying proper interspace localization after which a self- retaining retractor was placed to facilitate exposure. A partial hemilaminectomy was then carried out by removing the inferior aspect of the L4 lamina and medial aspect of the facet complex utilizing a combination of the Midas Ralph drill and Kerrison rongeurs. This was carried superiorly until the attachment of ligamentum flavum was taken down. Ligamentum flavum was then removed with the Kerrison as well. Projecting beneath the L5 nerve root was a subcapsular herniation of disk material. The opening in the posterior longitudinal ligament was enlarged and multiple fragments of disk removed from beneath the nerve root. Epidural venous structures were coagulated and divided utilizing microdissection. The disk space itself was cleared of any loose disk material using pituitary forceps and curettes. It was felt that a satisfactory decompression had been achieved. After assuring adequate hemostasis, the wound was thoroughly irrigated, after which, a piece of Gelfoam was placed over the laminectomy defect. The fascia was then reapproximated with 0 Vicryl suture. The subcutaneous tissues were closed with 3-0 Vicryl suture and the skin closed with skin clips. The estimated blood loss was less than 50 cc and final sponge , padding, and needle counts were correct. The patient was taken to recovery room, extubated, and in stable condition. [id number] #: [id number] MTDD
--- NOTE | 2018-01-27 08:24 | DS ---
DISCHARGE SUMMARY: DATE OF ADMISSION: 01/23/18 DATE OF DISCHARGE: 01/24/18 ATTENDING PHYSICIAN: Dr. Sewell.* (DICTATED BY DIVYA AVILA) DISCHARGE DIAGNOSES: 1. Herniated nucleus pulposus, L4-5 on the left. 2. Atrial fibrillation. 3. Waldenstrom's macroglobulinemia. 4. Crohn's disease. SPECIAL PROCEDURE: Lumbar diskectomy L4-5 on the left. HOSPITAL COURSE: This 72-year-old male was seen in the office with a symptomatic left-sided herniated disk at L4-5. He has failed to improve with conservative treatments over the previous 1 year and was referred for a neurosurgical evaluation. He elected to proceed with surgery. On the day of admission, he was taken to surgery where under general anesthesia, a lumbar diskectomy at L4-5 on the left operation was carried out. Postoperatively, he was feeling well. He was ambulating independently around the nursing unit. Preoperative symptoms were nearly resolved. He was eating, drinking, and voiding without difficulty, and the pain was well controlled with oral pain medications. On the first postoperative day, he was discharged home to the care of his . DISCHARGE INSTRUCTIONS: Wound care and activity level were discussed with the patient and information was provided. The patient will be seen in the office in approximately 10 days for followup and staple removal. DISCHARGE MEDICATIONS: Steen 5/325 mg 2 tabs by mouth every 4 hours as needed for pain. DVIYA AVILA [id number]/[facility] #: [id number] [facility]ITALMick
== END 2018-01-24 10:25 | disposition home or self-care (01) ==
LOC: OR 06:15 → SSU 09:03
PROVIDERS: ADMIT Neurological Surgery; ATTEND Neurological Surgery
PROC: 01NB0ZZ Release Lumbar Nerve, Open Approach (ICD-10-PCS; principal; 2018-01-23 07:30)
DX: M51.26 Other intervertebral disc displacement, lumbar region (principal); M79.605 Pain in left leg; N40.0 Benign prostatic hyperplasia without lower urinary tract symptoms; I48.91 Unspecified atrial fibrillation; Z85.79 Personal history of other malignant neoplasms of lymphoid, hematopoietic and related tissues
CPT/HCPCS: 72100; A9270-GY; G0378; J0690; J2001; J2704; J2710; J3010; J8540

== ENCOUNTER 2018-03-14 17:01 | Observation (INO) | payer MEDICARE, BC ==
[2018-03-14] MEDS ORDERED: Diltiazem IV VIAL* 5 MG/ML 10 ML VIAL IV SLOW PU ONE (17:29)
[2018-03-14] MEDS ORDERED: Diltiazem DRIP* 100 MG/100 ML ADDV.BAG IVPB ONE (17:29)
[2018-03-14 18:03] LABS: Hematocrit 40 % (42-52); Hemoglobin 13.6 g/dl (14.0-18.0); Mean Corpuscular HGB Conc 34 g/dl (31-36); Mean Corpuscular Hemoglobin 28 pg (27-31); Mean Corpuscular Volume 82 fL (80-94); Mean Platelet Volume 8.6 um3 (7.4-10.4); Platelet Count 140 10^3/ul (150-450); Red Blood Count 4.88 10^6/ul (4.00-5.40); Red Cell Distribution Width 17 % (10.5-15)
--- NOTE | 2018-03-14 18:03 | RAD ---
Indication: Rapid heart rate. Atrial fibrillation. Comparison: January 16, 2018 Technique: Upright AP 1754 hours Report: No focal pulmonary lesion, compelling alveolar consolidation, pleural effusion, pneumothorax. Negative for cardiomegaly. Unremarkable central pulmonary vasculature. Mildly tortuous descending thoracic aorta without change. IMPRESSION: No evidence for acute intrathoracic disease.
[2018-03-14 18:04] LABS: ABS Basophils 0.1 10^3/ul (0-0.2); ABS Eosinophils 0.2 10^3/ul (0-0.6); ABS Lymphocytes 1.1 10^3/ul (1.0-4.8); ABS Monocytes 0.9 10^3/ul (0-0.8); ABS Neutrophils 3.7 10^3/ul (1.5-7.7); ABS Nucleated RBC 0 10^3/ul; Eosinophil % 3.5 % (0-6); Lymphocyte % 18.2 % (25-47); Nucleated Red Blood Cells % 0.1
[2018-03-14 18:08] LABS: INR 0.87 (0.77-1.02)
[2018-03-14 18:20] LABS: EGFR Non-African American 54.7 (>60)
--- NOTE | 2018-03-14 18:47 | ED ---
Palpitations / Dysrhythmia - HPI Summary HPI Summary: This pt is a 72 y/o male presenting to [facility] c/o intermittent atrial fibrillation for the past 1 month. Pt reports he is a cancer patient, has Waldenstroms macroglobulinemia and is currently on imbruvica. He notes he began imbruvica on 02/16/18 and since then he has had this irregular rhythm intermittently. He notes that these episodes lasts between 2 to 4 hours at a time. Today he hiked a mile. Pt currently reports irregular heart rhythm, high heart rate, some chest pressure. Denies SOB. Pt saw Dr. Thakur 2 days ago and was instructed to come to the ED for another episode of afib as he does not have any past EKG. Pt states his oncologist Dr. San consulted with Dr. Thakur 5 days ago and his dose of metoprolol was increased from 25 to 50 mg. Pt decided not to take it to catch his rapid afib in an EKG. PMHx includes Waldenstroms. 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 In 2014 pt was started on oral chemotherapy ("evidently this is what caused the first episode of afib) . Pt had a stress test in [address] Thakur noticed he was in rapid afib. Pt is not on anticoagulants. Denies hx of CVA. FHx of father with CVA. Denies tobacco or alcohol use. - History of Current Complaint Chief Complaint: EDDysrhythmPalp Time Seen by Provider: 03/14/18 18:33 Hx Obtained From: Patient Onset/Duration: Lasting Hours - 2-4 hours, Still Present Timing: Intermittent Episodes Lasting: - 2-4 hours at a time Severity Currently: Moderate Character: Fast, Irregular Aggravating: Nothing Alleviating: Nothing Associated Signs & Symptoms: Chest Pain - Allergy/Home Medications Allergies/Adverse Reactions: Allergies Allergy/AdvReac Type Severity Reaction Status Date / Time No Known Allergies Allergy Verified 01/23/18 06:53 Home Medications: Home Medications Acetaminophen TAB* [Tylenol TAB*] 325 - 650 mg PO Q4H PRN 03/14/18 [History Confirmed 03/14/18] Ibrutinib (NF) [Imbruvica (NF)] 420 mg PO DAILY 03/14/18 [History Confirmed 07/22] Levothyroxine TAB* [Synthroid TAB*] 125 mcg PO QAM 03/14/18 [History Confirmed 03/14/18] Metoprolol Succinate XL TAB* [Toprol XL TAB*] 75 mg PO DAILY 03/14/18 [History Confirmed 03/14/18] Testosterone [Androgel] 10 gm TOPICAL QAM 03/14/18 [History Confirmed 03/14/18] PMH/Surg Hx/FS Hx/Imm Hx Endocrine/Hematology History: Reports: Hx Blood Disorders - hx of leukemia , now in remission, Hx Thyroid Disease - HYPO, Other Endocrine/Hematological Disorders - waldenstrom macroglobulinemia Denies: Hx Diabetes Cardiovascular History: Reports: Hx Hypercholesterolemia, Other Cardiovascular Problems/Disorders - OCCASSIONAL ARRHYTHMIA Denies: Hx Hypertension, Hx Pacemaker/ICD Respiratory History: Reports: Hx Sleep Apnea - NOT TESTED, Other Respiratory Problems/Disorders - HX CHILLS, UNSURE WHY, TAKES IBUPROFEN OR TYLENOL, THAN OK Denies: Hx Asthma GI History: Reports: Hx Crohn's Disease, Hx Hiatal Hernia, Other GI Disorders - 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, 1988 History: Reports: Hx Kidney Stones - IN PAST, Other Problems/Disorders - stones Denies: Hx Renal Disease Musculoskeletal History: Reports: Hx Osteoporosis - mild, Other Musculoskeletal History Denies: Hx Rheumatoid Arthritis Sensory History: Reports: Hx Contacts or Glasses, Hx Hearing Problem Denies: Hx Cataracts, Hx Hearing Aid Opthamlomology History: Reports: Hx Contacts or Glasses Denies: Hx Cataracts Neurological History: Reports: Other Neuro Impairments/Disorders - INFREQUENT VERTIGO Psychiatric History: Denies: Hx Panic Disorder - Cancer History Cancer Type, Location and Year: waldenstroms non hodgekins lymphoma Hx Chemotherapy: Yes - 09/2011 - Surgical History Surgery Procedure, Year, and Place: appendectomy;. Total colectomy with Ileostomy;. skin graft interior nose;. pituitary tumor removed;. kidney stones removed; Hx Anesthesia Reactions: Yes - SLOW TO WAKE UP - Immunization History Date of Tetanus Vaccine: up to date per pt Infectious Disease History: No Infectious Disease History: Denies: Traveled Outside the [place] in Last 30 Days - Family History Known Family History: Positive: Cardiac Disease - Father, grandfather, Other - osteoporosis Family History: Father with CVA. - Social History Alcohol Use: None Alcohol Amount: 1 BEER PER MONTH Substance Use Type: Reports: None Smoking Status (MU): Former Smoker Type: Cigarettes Amount Used/How Often: smoked a pipe Review of Systems Negative: Fever, Chills Cardiovascular: Other - fast heart rate Positive: Palpitations, Chest Pain Negative: Shortness Of Breath Skin: Negative Neurological: Negative All Other Systems Reviewed And Are Negative: Yes Physical Exam - Summary Physical Exam Summary: Appearance: Well appearing, no pain distress Skin: warm, dry, reflects adequate perfusion Head/face: normal Eyes: EOMI, NOLAN ENT: normal Neck: supple, non-tender Respiratory: CTA, breath sounds present Cardiovascular: Heart is irregularly irregular, pulses symmetrical Abdomen: non-tender, soft Bowel: present Musculoskeletal: 1+ edema on RLE. Neuro: normal, sensory motor intact, A&Ox3 Triage Information Reviewed: Yes Vital Signs On Initial Exam: Initial Vitals Temp Pulse Resp BP Pulse Ox 96.6 F 112 17 146/89 95 03/14/18 17:05 03/14/18 17:05 03/14/18 17:05 03/14/18 17:05 03/14/18 17:05 Vital Signs Reviewed: Yes Diagnostics - Vital Signs Vital Signs Temp Pulse Resp BP Pulse Ox 03/14/18 17:05 96.6 F 112 17 146/89 95 - Laboratory Lab Results: Lab Results 03/14/18 03/14/18 03/14/18 Range/Units 17:52 17:52 17:52 WBC 6.0 (3.5-10.8) 10^3/ul RBC 4.88 (4.00-5.40) 10^6/ul Hgb 13.6 L (14.0-18.0) g/dl Hct 40 L (42-52) % MCV 82 (80-94) fL MCH 28 (27-31) pg MCHC 34 (31-36) g/dl RDW 17 H (10.5-15) % Plt Count 140 L (150-450) 10^3/ul MPV 8.6 (7.4-10.4) um3 Neut % (Auto) 62.3 (38-83) % Lymph % (Auto) 18.2 L (25-47) % Erath % (Auto) 14.4 H (0-7) % Eos % (Auto) 3.5 (0-6) % Baso % (Auto) 1.6 (0-2) % Absolute Neuts (auto) 3.7 (1.5-7.7) 10^3/ul Absolute Lymphs (auto) 1.1 (1.0-4.8) 10^3/ul Absolute Monos (auto) 0.9 H (0-0.8) 10^3/ul Absolute Eos (auto) 0.2 (0-0.6) 10^3/ul Absolute Basos (auto) 0.1 (0-0.2) 10^3/ul Absolute Nucleated RBC 0 10^3/ul Nucleated RBC % 0.1 INR (Anticoag Therapy) 0.87 (0.77-1.02) Sodium 138 (135-145) mmol/L Potassium TNP Chloride 105 (101-111) mmol/L Carbon Dioxide 26 (22-32) mmol/L Anion Gap 7 (2-11) mmol/L BUN 17 (6-24) mg/dL Creatinine 1.29 H (0.67-1.17) mg/dL Est GFR ( Amer) 66.2 (>60) Est GFR (Non-Af Amer) 54.7 (>60) BUN/Creatinine Ratio 13.2 (8-20) Glucose 94 (70-100) mg/dL Lactic Acid (0.5-2.0) mmol/L Calcium 9.9 (8.6-10.3) mg/dL Total Bilirubin 0.50 (0.2-1.0) mg/dL AST TNP ALT 17 (7-52) U/L Alkaline Phosphatase 35 (34-104) U/L Troponin I 0.00 (<0.04) ng/mL B-Natriuretic Peptide ( - 100) pg/mL Total Protein 8.4 (6.4-8.9) g/dL Albumin 3.7 (3.2-5.2) g/dL Globulin 4.7 H (2-4) g/dL Albumin/Globulin Ratio 0.8 L (1-3) TSH Pending 03/14/18 03/14/18 Range/Units 17:52 17:52 WBC (3.5-10.8) 10^3/ul RBC (4.00-5.40) 10^6/ul Hgb (14.0-18.0) g/dl Hct (42-52) % MCV (80-94) fL MCH (27-31) pg MCHC (31-36) g/dl RDW (10.5-15) % Plt Count (150-450) 10^3/ul MPV (7.4-10.4) um3 Neut % (Auto) (38-83) % Lymph % (Auto) (25-47) % Erath % (Auto) (0-7) % Eos % (Auto) (0-6) % Baso % (Auto) (0-2) % Absolute Neuts (auto) (1.5-7.7) 10^3/ul Absolute Lymphs (auto) (1.0-4.8) 10^3/ul Absolute Monos (auto) (0-0.8) 10^3/ul Absolute Eos (auto) (0-0.6) 10^3/ul Absolute Basos (auto) (0-0.2) 10^3/ul Absolute Nucleated RBC 10^3/ul Nucleated RBC % INR (Anticoag Therapy) (0.77-1.02) Sodium (135-145) mmol/L Potassium Chloride (101-111) mmol/L Carbon Dioxide (22-32) mmol/L Anion Gap (2-11) mmol/L BUN (6-24) mg/dL Creatinine (0.67-1.17) mg/dL Est GFR ( Amer) (>60) Est GFR (Non-Af Amer) (>60) BUN/Creatinine Ratio (8-20) Glucose (70-100) mg/dL Lactic Acid 1.4 (0.5-2.0) mmol/L Calcium (8.6-10.3) mg/dL Total Bilirubin (0.2-1.0) mg/dL AST ALT (7-52) U/L Alkaline Phosphatase (34-104) U/L Troponin I (<0.04) ng/mL B-Natriuretic Peptide 55 ( - 100) pg/mL Total Protein (6.4-8.9) g/dL Albumin (3.2-5.2) g/dL Globulin (2-4) g/dL Albumin/Globulin Ratio (1-3) TSH Result Diagrams: 03/14/18 17:52 07/11/18 18:32 Lab Statement: Any lab studies that have been ordered have been reviewed, and results considered in the medical decision making process. - Radiology chest XR Xray Interpretation: No Acute Changes - IMPRESSION: no evidence for acute intrathoracic disease. Dr. Gray has reviewed this radiology report. Radiology Interpretation Completed By: Radiologist - EKG 17:11 Cardiac Rate: Tachycardia - at 137 bpm EKG Rhythm: Atrial Fibrillation - rapid afib ST Segment: Non-Specific EKG Interpretation: LAD. Course/Dx - Course Course Of Treatment: Patient presents with rapid irregular heartbeat found to be atrial fibrillation. He is otherwise very stable. His heart rate averages 130. He was started on diltiazem which brought his rate into the 80s. I discussed the case with his computer artist who admitted been looking for what this rhythm was. He suggested admission which of course is the plan. Hospitalist was contacted and evaluated the patient at bedside. He was admitted to the telemetry service otherwise stable. - Diagnoses Differential Diagnosis/HQI/PQRI: Positive: Other - Rapid atrial fibrillation secondary to infection, metabolic abnormality, ischemic heart disease, medication reaction to chemotherapy Provider Diagnoses: Rapid atrial fibrillation, Waldenstrom macroglobulinemia - Physician Notifications Discussed Care Of Patient With: Everette Thakur Time Discussed With Above Provider: 19:04 Instructed by Provider To: Other - I discussed pt care with Dr. Thakur, computer artist. [19:15] I spoke with Dr. Rodriges, oncologist. [19:19] I discussed with Dr. Beck, hospitalist, who accepted the pt for admission. - Critical Care Time Critical Care Time: 30-74 min - Critical care time is exclusive of separately billable procedures Discharge - Sign-Out/Discharge Documenting (check all that apply): Patient Departure - Admit - Discharge Plan Condition: Fair Disposition: ADMITTED TO [facility] Referrals: Jose Alfredo Casas MD [Primary Care Provider] - - Billing Disposition and Condition Condition: FAIR Disposition: Admitted to [facility]
[2018-03-14] MEDS ORDERED: Apixaban* 5 MG TAB PO SCH ×2 (19:18→21:00)
[2018-03-14] MEDS ORDERED: NS 0.9% 100 ML* 100 ML ONE (19:41)
[2018-03-14] MEDS ORDERED: Diltiazem IV* 5 MG/ML 5 ML VIAL (for loading dose/IV Push) (25 MG) ONE (19:45)
[2018-03-14] MEDS ORDERED: Diltiazem IV VIAL* 125 MG in NS 0.9% 100 ML* 100 ML IV ONE (19:45)
[2018-03-14] MEDS ORDERED: Ondansetron INJ* 2 MG/ML VIAL IV PRN (20:22)
[2018-03-14] MEDS ORDERED: Acetaminophen TAB* 325 MG PO PRN (20:22)
[2018-03-14] MEDS ORDERED: Metoprolol Succinate XL TAB* 50 MG PO SCH (21:00)
--- NOTE | 2018-03-15 00:38 | HP ---
CC: Dr. Casas; Dr. San; Dr. Narayan; Dr. Thakur; Dr. Florez * HISTORY AND PHYSICAL: DATE OF ADMISSION: 03/14/18 PRIMARY CARE PROVIDER: Dr. Casas. ATTENDING PHYSICIAN WHILE IN THE HOSPITAL: Dr. Beck * (report dictated by Jesus Mishra NP) PRIMARY ONCOLOGIST: Dr. San. CHIEF COMPLAINT: Palpitations. HISTORY OF PRESENT ILLNESS: Mr. Alexandra is a 72-year-old male patient. He has a history of hyperlipidemia, Crohn's, Waldenstrom's macroglobulinemia. He has a history of nephrolithiasis, primary sclerosing cholangitis, history of panhypopituitarism, history of BPH. In the past, he has had episodes after a stress test about 3 years ago where he had an irregular heartbeat. The patient thinks it may have been AFib. After the stress test, he was on several different Holter monitors. He has had episodes where he has had intermittent palpitations and never was able to find AFib on Holter monitor. He had been doing well. He was placed on Lopressor for rate control, which had been helping ; however, he noticed over the last few days, he has been having more intermittent episodes of palpitations that would go away, but after several hours and then go away on their own. Dr. Thakur had informed the patient that if he had an episode to come to the ER immediately to be evaluated. While today around 3 o'clock, he was going up a hill, he started having the palpitations. He hiked all day. He felt okay but at the end, when he went up this hill, he started getting palpitations. He felt short of breath. His heart was racing. He was able to check his heart with a monitor that he had available to him, it was erratic. He came into the ER as directed. Recently, his metoprolol was increased from 50 mg to 75; however, he has not initiated that and started the 75 mg. He denied any chest heaviness or pressure. He states he had no discomfort, but he just had these palpitations and his heart was racing. He came in to the ER today. He was found to be in AFib with RVR and because of this, we were asked to evaluate for admission. PAST MEDICAL HISTORY: Significant for: 1. Hyperlipidemia. 2. Crohn's. 3. Waldenstrom's macroglobulinemia. 4. Nephrolithiasis. 5. Primary sclerosing cholangitis. 6. Panhypopituitarism. 7. AFib. 8. BPH. PAST SURGICAL HISTORY: 1. He has had an ileostomy. 2. Partial pituitary tumor resection. 3. Cataracts. 4. Laminectomy at L4-L5. 5. Appendectomy. HOME MEDICATIONS: Include: 1. Testosterone 10 g topically q.a.m. 2. Imbruvica 420 mg p.o. daily. 3. Tylenol 325 one to two tablets every 4 hours as needed. 4. Vitamin C 500 mg p.o. daily. 5. Fluorouracil 5% topically daily as needed. 6. Synthroid 125 mcg daily. 7. Calcium with vitamin D 1 tablet daily. 8. Vitamin D 1000 units p.o. daily. 9. Synthroid 125 mcg daily. 10. Hydrocortisone 15 mg in the morning, 15 mg at noon, and 5 mg at bedtime. 11. Multivitamin 1 tablet daily. 12. Metoprolol XL; he is supposed to be taking, which he has not started yet, 25 mg in the morning and 50 mg at bedtime. 13. Magnesium oxide 250 mg p.o. at bedtime. ALLERGIES TO MEDICATIONS: Include no known drug allergies. FAMILY HISTORY: Mother had a history of CHF and father had a history of CVA and diabetes. SOCIAL HISTORY: He does not smoke. He does not drink. Surrogate decision maker is his . REVIEW OF SYSTEMS: There was no documented fever. He denies having any significant weight change. There was no double vision. He denies having any ear discharge. No rhinorrhea. No sore throat. No thyroid enlargement. Denied having any chest pressure. There is no orthopnea. There is no nocturnal dyspnea. He denies having any abdominal pain. There is no nausea, no vomiting. There is no dysuria, no frequency. No seizure, no loss of consciousness. No pruritus and no skin ulcerations. Review of 14 systems completed, all others negative. PHYSICAL EXAMINATION GENERAL: At this time, Mr. Alexandra is a 72-year-old male patient. He is sitting in the ED stretcher. He does not appear to be in any acute distress. VITAL SIGNS: Blood pressure 146/89, pulse 112, respirations 17, O2 sat 95%, temperature 96.6. HEENT: Head: Atraumatic and normocephalic. Eyes: EOMs are intact. Sclerae anicteric and not pale. Throat: Oral mucosa appears to be moist. No oropharyngeal erythema. NECK: Supple. LUNGS: Clear to auscultation bilaterally. No wheezes, rales, or rhonchi. HEART: Sounds S1, S2. Irregularly irregular rate. No murmurs, rubs, or gallops. ABDOMEN: Soft, flat, nontender. Bowel sounds present. EXTREMITIES: Pulses were 2+ throughout. He is able move all 4 extremities with 5/5 strength. NEUROLOGIC: The patient is awake, he is alert, he is oriented x3. Tongue is midline. String Winding Machine Operator were equal. He had no gross focal deficits. SKIN: Grossly intact. LABORATORY DATA/DIAGNOSTIC STUDIES: WBC today revealed 6.0, RBC of 4.88, hemoglobin 13.6, hematocrit 40, platelet count of 140. INR was 0.89. Sodium was 138, potassium 4.1, chloride 105, bicarb 26, BUN 17, creatinine 1.29, glucose 94. Lactate 1.4. Calcium 9. Total bili 0.5, AST 21, ALT 13, alk phos 35. Troponin 0. BNP 55. TSH was 0.04. T3 and T4 are pending. He had a chest x-ray obtained today, impression: No evidence for acute intrathoracic disease. He had an EKG obtained today, which is showing atrial fibrillation with a rate of 137. He had no ST elevation or T wave inversion noted. Previous EKGs, all again were noted to be sinus rhythm, AFib is not new. Old medical records were reviewed. ASSESSMENT AND PLAN: Mr. Alexandra is a 72-year-old male patient coming in to the ED today with complaints of palpitations. On evaluation, he was found to be in atrial fibrillation with RVR. He will be admitted under observation status for: 1. Atrial fibrillation with RVR. At this point, I am going to go ahead and start him on Eliquis. We will make the patient n.p.o. for possible RUT-guided cardioversion, although the time of onset was right around 3 o'clock per the patient for today's episode, but he has been having it intermittently. Dr. Florez has been consulted. Dr. Thakur was alerted by the ED. My plan would be to check his T3, T4, free T3 and free T4. If these are elevated, we may need to consider cutting back his dose. We will need to touch base with Dr. Narayan as this could be contributing to atrial fibrillation. The patient also is on Imbruvica, which also can potentiate this. I did touch base with Dr. Rodriges. He said Eliquis would be appropriate and we will make sure Dr. San is aware of the new change of med. For the time being, we will check the mag. We will cycle his troponins and we will continue to follow. 2. Hyperlipidemia. Follow up with PCP. 3. Crohn's. At this point, it is stable, we will monitor. 4. History of Waldenstrom's. Continue medications as prescribed. 5. History of primary sclerosing cholangitis. Continue his current medical regimen. 6. History of panhypopituitarism. Continue medications as prescribed. I am checking his thyroid function studies. 7. Benign prostatic hypertrophy. Continue medications as prescribed. 8. DVT prophylaxis. He will be placed on Eliquis. 9. Code status. Full code. 10. Fluids, electrolytes, and nutrition. He can have a heart-healthy diet and n.p.o. after midnight. TIME SPENT: Time spent on admission was 60 minutes, greater than half the time was spent [id number] with the patient obtaining my history and physical; other half time was spent going over the plan of care with the patient and implementing plan of care. I did discuss the plan of care with my attending, Dr. Beck, who is in agreement. JESUS MISHRA, NAOMI [id number]/[facility] #: [id number] YVETTE
[2018-03-15] MEDS ORDERED: Hydrocortisone TAB* 5 MG PO SCH ×3 (04:00→18:00)
[2018-03-15] MEDS ORDERED: Levothyroxine TAB* 125 MCG TAB PO SCH (06:00)
[2018-03-15 06:01] LABS: Hematocrit 41 % (42-52); Mean Corpuscular HGB Conc 34 g/dl (31-36); Mean Corpuscular Hemoglobin 28 pg (27-31); Mean Corpuscular Volume 81 fL (80-94); Mean Platelet Volume 8.6 um3 (7.4-10.4); Platelet Count 137 10^3/ul (150-450); Red Blood Count 5.05 10^6/ul (4.00-5.40); Red Cell Distribution Width 16 % (10.5-15); White Blood Count 5.4 10^3/ul (3.5-10.8)
[2018-03-15 06:33] LABS: ABS Basophils 0 10^3/ul (0-0.2); ABS Eosinophils 0.3 10^3/ul (0-0.6); ABS Lymphocytes 1.2 10^3/ul (1.0-4.8); ABS Monocytes 0.7 10^3/ul (0-0.8); ABS Neutrophils 3.3 10^3/ul (1.5-7.7); ABS Nucleated RBC 0 10^3/ul; Lymphocyte % 21.9 % (25-47); Nucleated Red Blood Cells % 0.2
[2018-03-15] MEDS ORDERED: Cholecalciferol TAB* 1000 UNITS PO SCH (09:00)
[2018-03-15] MEDS ORDERED: Metoprolol Succinate XL TAB* 25 MG PO SCH (09:00)
[2018-03-15] MEDS ORDERED: Apixaban* 5 MG TAB PO SCH (09:00)
[2018-03-15] MEDS ORDERED: Ascorbic Acid TAB* 500 MG PO SCH (09:00)
[2018-03-15] MEDS ORDERED: IBRUTINIB 140 MG PO SCH (09:00)
[2018-03-15] MEDS ORDERED: Magnesium Oxide TAB* 400 MG PO SCH (11:00)
[2018-03-15 11:56] VITALS: BP 110/67
[2018-03-15] MEDS ORDERED: Multivitamins/Minerals TAB PO SCH (12:00)
--- NOTE | 2018-03-15 12:11 | PN ---
Subjective Date of Service: 03/15/18 Interval History: Pt feels well. Had a .fib since 03/14/18 3 pm to 03/15/18 2 pm when he converted to NSR on Cardizem gtt Pt has no complaints Objective Active Medications: Acetaminophen (Tylenol Tab*) 650 mg PO Q4H PRN PRN Reason: FEVER/PAIN Last Admin: 03/15/18 05:19 Dose: 650 mg Apixaban (Eliquis*) 5 mg PO 0900,2100 [facility] Last Admin: 03/15/18 09:38 Dose: 5 mg Ascorbic Acid (Vitamin C Tab*) 500 mg PO DAILY [facility] Last Admin: 03/15/18 09:39 Dose: 500 mg Calcium/Vitamin D (Oscal D Tab 250/125*) 1 tab PO QPM [facility] Cholecalciferol (Vitamin D Tab*) 1,000 units PO DAILY [facility] Last Admin: 03/15/18 09:38 Dose: 1,000 units Hydrocortisone (Cortef Tab*) 15 mg PO DAILY@0400 [facility] Last Admin: 03/15/18 05:16 Dose: 15 mg Hydrocortisone (Cortef Tab*) 5 mg PO QPM [facility] Hydrocortisone (Cortef Tab*) 15 mg PO 1200 [facility] Ibrutinib (Imbruvica (Nf)) 420 mg PO DAILY [facility] Last Admin: 03/15/18 09:40 Dose: 420 mg Levothyroxine Sodium (Synthroid Tab*) 125 mcg PO 0600 [facility] Last Admin: 03/15/18 05:16 Dose: 125 mcg Magnesium Oxide (Magox 400 Tab*) 400 mg PO DAILY [facility] Metoprolol Succinate (Toprol Xl Tab*) 25 mg PO DAILY [facility] Last Admin: 03/15/18 09:39 Dose: 25 mg Metoprolol Succinate (Toprol Xl Tab*) 50 mg PO BEDTIME [facility] Last Admin: 03/14/18 23:03 Dose: 50 mg Multivitamins/Minerals (Theragran/Minerals Tab*) 1 tab PO 1200 [facility] Ondansetron HCl (Zofran Inj*) 4 mg IV Q6H PRN PRN Reason: NAUSEA Vital Signs - 8 hr 03/15/18 03/15/18 03/15/18 05:00 06:00 07:00 Temperature Pulse Rate Respiratory Rate Blood Pressure 107/75 112/81 100/74 (mmHg) O2 Sat by Pulse Oximetry 03/15/18 03/15/18 03/15/18 07:34 08:00 09:03 Temperature 98.0 F Pulse Rate 66 Respiratory 16 17 Rate Blood Pressure 113/64 (mmHg) O2 Sat by Pulse 97 97 Oximetry 03/15/18 11:26 Temperature 98.0 F Pulse Rate 60 Respiratory 16 Rate Blood Pressure 110/67 (mmHg) O2 Sat by Pulse 95 Oximetry Oxygen Devices in Use Now: None Appearance: 72 yo M in NAD, aAOx3 Eyes: No Scleral Icterus, PERRLA Ears/Nose/Mouth/Throat: NL Teeth, Lips, Gums, Mucous Membranes Moist Neck: NL Appearance and Movements; NL JVP, Trachea Midline Respiratory: Symmetrical Chest Expansion and Respiratory Effort, Clear to Auscultation Cardiovascular: NL Sounds; No Murmurs; No JVD Abdominal: NL Sounds; No Tenderness; No Distention Extremities: No Edema, No Clubbing, Cyanosis Skin: No Rash or Ulcers, No Nodules or Sclerosis Neurological: Alert and Oriented x 3, NL Muscle Strength and Tone Result Diagrams: 03/15/18 05:53 03/14/18 18:32 Additional Lab and Data: Lab Results 03/14/18 03/14/18 03/14/18 Range/Units 17:52 17:52 17:52 WBC 6.0 (3.5-10.8) 10^3/ul RBC 4.88 (4.00-5.40) 10^6/ul Hgb 13.6 L (14.0-18.0) g/dl Hct 40 L (42-52) % MCV 82 (80-94) fL MCH 28 (27-31) pg MCHC 34 (31-36) g/dl RDW 17 H (10.5-15) % Plt Count 140 L (150-450) 10^3/ul MPV 8.6 (7.4-10.4) um3 Neut % (Auto) 62.3 (38-83) % Lymph % (Auto) 18.2 L (25-47) % [place] % (Auto) 14.4 H (0-7) % Eos % (Auto) 3.5 (0-6) % Baso % (Auto) 1.6 (0-2) % Absolute Neuts (auto) 3.7 (1.5-7.7) 10^3/ul Absolute Lymphs (auto) 1.1 (1.0-4.8) 10^3/ul Absolute Monos (auto) 0.9 H (0-0.8) 10^3/ul Absolute Eos (auto) 0.2 (0-0.6) 10^3/ul Absolute Basos (auto) 0.1 (0-0.2) 10^3/ul Absolute Nucleated RBC 0 10^3/ul Nucleated RBC % 0.1 INR (Anticoag Therapy) 0.87 (0.77-1.02) Sodium 138 (135-145) mmol/L Potassium TNP Chloride 105 (101-111) mmol/L Carbon Dioxide 26 (22-32) mmol/L Anion Gap 7 (2-11) mmol/L BUN 17 (6-24) mg/dL Creatinine 1.29 H (0.67-1.17) mg/dL Est GFR ( Amer) 66.2 (>60) Est GFR (Non-Af Amer) 54.7 (>60) BUN/Creatinine Ratio 13.2 (8-20) Glucose 94 (70-100) mg/dL Lactic Acid (0.5-2.0) mmol/L Calcium 9.9 (8.6-10.3) mg/dL Total Bilirubin 0.50 (0.2-1.0) mg/dL AST TNP ALT 17 (7-52) U/L Alkaline Phosphatase 35 (34-104) U/L Troponin I 0.00 (<0.04) ng/mL B-Natriuretic Peptide ( - 100) pg/mL Total Protein 8.4 (6.4-8.9) g/dL Albumin 3.7 (3.2-5.2) g/dL Globulin 4.7 H (2-4) g/dL Albumin/Globulin Ratio 0.8 L (1-3) TSH Pending 03/14/18 03/14/18 Range/Units 17:52 17:52 WBC (3.5-10.8) 10^3/ul RBC (4.00-5.40) 10^6/ul Hgb (14.0-18.0) g/dl Hct (42-52) % MCV (80-94) fL MCH (27-31) pg MCHC (31-36) g/dl RDW (10.5-15) % Plt Count (150-450) 10^3/ul MPV (7.4-10.4) um3 Neut % (Auto) (38-83) % Lymph % (Auto) (25-47) % [place] % (Auto) (0-7) % Eos % (Auto) (0-6) % Baso % (Auto) (0-2) % Absolute Neuts (auto) (1.5-7.7) 10^3/ul Absolute Lymphs (auto) (1.0-4.8) 10^3/ul Absolute Monos (auto) (0-0.8) 10^3/ul Absolute Eos (auto) (0-0.6) 10^3/ul Absolute Basos (auto) (0-0.2) 10^3/ul Absolute Nucleated RBC 10^3/ul Nucleated RBC % INR (Anticoag Therapy) (0.77-1.02) Sodium (135-145) mmol/L Potassium Chloride (101-111) mmol/L Carbon Dioxide (22-32) mmol/L Anion Gap (2-11) mmol/L BUN (6-24) mg/dL Creatinine (0.67-1.17) mg/dL Est GFR ( Amer) (>60) Est GFR (Non-Af Amer) (>60) BUN/Creatinine Ratio (8-20) Glucose (70-100) mg/dL Lactic Acid 1.4 (0.5-2.0) mmol/L Calcium (8.6-10.3) mg/dL Total Bilirubin (0.2-1.0) mg/dL AST ALT (7-52) U/L Alkaline Phosphatase (34-104) U/L Troponin I (<0.04) ng/mL B-Natriuretic Peptide 55 ( - 100) pg/mL Total Protein (6.4-8.9) g/dL Albumin (3.2-5.2) g/dL Globulin (2-4) g/dL Albumin/Globulin Ratio (1-3) TSH Assess/Plan/Problems-Billing Assessment: 72 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 fib with RVR - Patient Problems (1) A-fib Comment: converted to NSR. Spoke with Dr. Mccracken.Pt will be discharged on the same dose of beta mariana as before to see DR. Thakur as outpatient. In re: anticoagulation , due to h/o ICH and bleeding intercranial mass in 2014 as well as current tx for Waldenstrom's-the concology service was asked to see pt to guide anticoagulation tx. Currently on Eliquis (2) Waldenstroms macroglobulinemia Comment: onclogy will decide whether to stop or cont Imbruvica (3) Panhypopituitarism Comment: cont current replacement Status and Disposition: OBV, planned d/c later on today
--- NOTE | 2018-03-15 12:24 | PN ---
Progress Note - Progress Note Date of Service: 03/15/18 SOAP: Subjective: []Well known to cardiology due to dx. Waldenstrom's Macroglobulemia. Restarted on Imbruvica approx. 1 mo. ago. Has been followed in our office closely due to recurrent sx. of paroxsymal A.Fib. despite Metoprolol dosing ( from prior episodes). His beta mariana was increased as per Dr. Thakur and Dr. San's discussion from 25 mg to 50 mg on 03/09. He tells me that on 03/[address] Thakur and was instructed to increase his metoprolol to 75 mg, however he did not because he knew he would have another episode and he was told if he did he should come to the hospital for full work-up. "And I figured I should get it out of the way." He was not previously anticoagulated due to a prior COMMERCIAL MANAGER bleed from pituitary tumor (now resected). Presented yesterday afternoon in A.Fib with RVR. Started cardizem gtt and converted quickly. Has been in SR since. Denies chest pain or pressure. No SOB. Currently getting echo. Medications: Acetaminophen (Tylenol Tab*) 650 mg PO Q4H PRN PRN Reason: FEVER/PAIN Last Admin: 03/15/18 05:19 Dose: 650 mg Apixaban (Eliquis*) 5 mg PO 0900,2100 [facility] Last Admin: 03/15/18 09:38 Dose: 5 mg Ascorbic Acid (Vitamin C Tab*) 500 mg PO DAILY [facility] Last Admin: 03/15/18 09:39 Dose: 500 mg Calcium/Vitamin D (Oscal D Tab 250/125*) 1 tab PO QPM [facility] Cholecalciferol (Vitamin D Tab*) 1,000 units PO DAILY [facility] Last Admin: 03/15/18 09:38 Dose: 1,000 units Hydrocortisone (Cortef Tab*) 15 mg PO DAILY@0400 [facility] Last Admin: 03/15/18 05:16 Dose: 15 mg Hydrocortisone (Cortef Tab*) 5 mg PO QPM [facility] Hydrocortisone (Cortef Tab*) 15 mg PO 1200 [facility] Last Admin: 03/15/18 12:05 Dose: 15 mg Ibrutinib (Imbruvica (Nf)) 420 mg PO DAILY [facility] Last Admin: 03/15/18 09:40 Dose: 420 mg Levothyroxine Sodium (Synthroid Tab*) 125 mcg PO 0600 [facility] Last Admin: 03/15/18 05:16 Dose: 125 mcg Magnesium Oxide (Magox 400 Tab*) 400 mg PO DAILY [facility] Last Admin: 03/15/18 12:03 Dose: 400 mg Metoprolol Succinate (Toprol Xl Tab*) 25 mg PO DAILY [facility] Last Admin: 03/15/18 09:39 Dose: 25 mg Metoprolol Succinate (Toprol Xl Tab*) 50 mg PO BEDTIME [facility] Last Admin: 03/14/18 23:03 Dose: 50 mg Multivitamins/Minerals (Theragran/Minerals Tab*) 1 tab PO 1200 [facility] Last Admin: 03/15/18 12:03 Dose: 1 tab Ondansetron HCl (Zofran Inj*) 4 mg IV Q6H PRN PRN Reason: NAUSEA Objective: [] Vital Signs Temp Pulse Resp BP Pulse Ox 98.0 F 60 16 110/67 95 03/15/18 11:26 03/15/18 11:26 03/15/18 11:26 03/15/18 11:26 03/15/18 11:26 A&Ox3, EOMI, PERRLA, neuro grossly non-focal HRR, S1S2 present, SR on tele Resp. even and non-labored without audible wheeze Laboratory Results - last 24 hr 03/14/18 03/14/18 03/14/18 17:52 17:52 17:52 WBC 6.0 RBC 4.88 Hgb 13.6 L Hct 40 L MCV 82 MCH 28 MCHC 34 RDW 17 H Plt Count 140 L MPV 8.6 Neut % (Auto) 62.3 Lymph % (Auto) 18.2 L [place] % (Auto) 14.4 H Eos % (Auto) 3.5 Baso % (Auto) 1.6 Absolute Neuts (auto) 3.7 Absolute Lymphs (auto) 1.1 Absolute Monos (auto) 0.9 H Absolute Eos (auto) 0.2 Absolute Basos (auto) 0.1 Absolute Nucleated RBC 0 Nucleated RBC % 0.1 Giant Platelets INR (Anticoag Therapy) 0.87 Sodium 138 Potassium TNP Chloride 105 Carbon Dioxide 26 Anion Gap 7 BUN 17 Creatinine 1.29 H Est GFR ( Amer) 66.2 Est GFR (Non-Af Amer) 54.7 BUN/Creatinine Ratio 13.2 Glucose 94 Lactic Acid Calcium 9.9 Magnesium Cancelled Total Bilirubin 0.50 AST TNP ALT 17 Alkaline Phosphatase 35 Troponin I 0.00 B-Natriuretic Peptide Total Protein 8.4 Albumin 3.7 Globulin 4.7 H Albumin/Globulin Ratio 0.8 L TSH 0.04 L Free T4 Thyroxine (T4) Free T3 Total T3 03/14/18 03/14/18 03/14/18 17:52 17:52 18:32 WBC RBC Hgb Hct MCV MCH MCHC RDW Plt Count MPV Neut % (Auto) Lymph % (Auto) [place] % (Auto) Eos % (Auto) Baso % (Auto) Absolute Neuts (auto) Absolute Lymphs (auto) Absolute Monos (auto) Absolute Eos (auto) Absolute Basos (auto) Absolute Nucleated RBC Nucleated RBC % Giant Platelets INR (Anticoag Therapy) Sodium Potassium 4.1 Chloride Carbon Dioxide Anion Gap BUN Creatinine Est GFR ( Amer) Est GFR (Non-Af Amer) BUN/Creatinine Ratio Glucose Lactic Acid 1.4 Calcium Magnesium 1.9 Total Bilirubin AST 21 ALT Alkaline Phosphatase Troponin I B-Natriuretic Peptide 55 Total Protein Albumin Globulin Albumin/Globulin Ratio TSH Free T4 1.01 Thyroxine (T4) 3.80 L Free T3 2.50 Total T3 94 03/14/18 03/14/18 03/15/18 20:30 23:25 05:53 WBC 5.4 RBC 5.05 Hgb 14.0 Hct 41 L MCV 81 MCH 28 MCHC 34 RDW 16 H Plt Count 137 L MPV 8.6 Neut % (Auto) 60.2 Lymph % (Auto) 21.9 L [place] % (Auto) 12.2 H Eos % (Auto) 5.0 Baso % (Auto) 0.7 Absolute Neuts (auto) 3.3 Absolute Lymphs (auto) 1.2 Absolute Monos (auto) 0.7 Absolute Eos (auto) 0.3 Absolute Basos (auto) 0 Absolute Nucleated RBC 0 Nucleated RBC % 0.2 Giant Platelets Present INR (Anticoag Therapy) Sodium Potassium Chloride Carbon Dioxide Anion Gap BUN Creatinine Est GFR ( Amer) Est GFR (Non-Af Amer) BUN/Creatinine Ratio Glucose Lactic Acid Calcium Magnesium Total Bilirubin AST ALT Alkaline Phosphatase Troponin I 0.01 0.01 B-Natriuretic Peptide Total Protein Albumin Globulin Albumin/Globulin Ratio TSH Free T4 Thyroxine (T4) Free T3 Total T3 Assessment/Plan:: []72 yo male with Waldonstrom's Macroglobulemia recently restarted on Imbruvica (following several years of surveillance off therapy) admitted to the hospital in A.Fib with RVR. He quickly converted and has known paroxsymal A.Fib, though it is likely he is having increased episodes with currently therapy. Over the past two weeks we have discussed the risks versus benefits of his current tx. and S/Es and he had been apt to continue due to a strong desire to avoid IV chemotherapy, however, despite an increased dose of beta mariana he has had a recurrent episode with subsquent hospitalization. At this time I suggest he increase his metoprolol to 75 mg as instructed by cardiology, hold imbruvica, and continue full dose anticoagulation. He will f/u with our office next week. Case discussed with Dr. Agrawal and Dr. San []
--- NOTE | 2018-03-15 14:21 | ECHO ---
Patient: KIM JOHNSON [facility] Rec#: [id number] : 1945 Date: 03/15/2018 Age: 72y Height: 178 cm / 70.1 in Weight: 90 kg / 198.4 lbs Sex: M BSA: 2.08 Room#: [facility] Admit Date#: 03/14/2018 Type: Inpatient Referring: Matilda Agrawal MD Reading: Ruslan Mccracken MD Credentialing Analyst: Janae Liu,RDCS,RDMS CC: Jose Alfredo Casas MD Transthoracic Echocardiogram Indication: AFIB BP: 113/64 HR: 58 Rhythm: Bradycardia Findings History: HLD, Waldenstrom's macroglobunemia, chemo Technical Comments: The study quality is good. Left Ventricle: The left ventricular chamber size is normal. Mild concentric left ventricular hypertrophy is observed. Global left ventricular wall motion and contractility are within normal limits. There is normal left ventricular systolic function. The estimated ejection fraction is 55-60%. Normal left ventricular diastolic filling is observed. Left Atrium: The left atrial chamber size is normal. Right Ventricle: The right ventricular chamber size and systolic function are within normal limits. Right Atrium: The right atrial cavity size is normal. Aortic Valve: The aortic valve is trileaflet. There is aortic annular calcification. There is a trace of aortic regurgitation. There is no evidence of aortic stenosis. Mitral Valve: The mitral valve leaflets appear normal. There is trace to mild mitral regurgitation. Tricuspid Valve: The tricuspid valve leaflets are normal. There is trace tricuspid regurgitation. The right ventricular systolic pressure is estimated at 24 mmHg. No pulmonary hypertension is noted. Pulmonic Valve: The pulmonic valve appears normal. There is a trace pulmonic regurgitation. There is no pulmonic stenosis. Pericardium: There is no significant pericardial effusion. Aorta: There is mild dilatation of the ascending aorta. There is no dilatation of the aortic arch. There is mild dilatation of the aortic root. Pulmonary Artery: The main pulmonary artery appears normal. Venous: The inferior vena cava is dilated. There is a greater than 50% respiratory change in the inferior vena cava dimension. Conclusions There is normal left ventricular systolic function. The estimated ejection fraction is 55-60%. Global left ventricular wall motion and contractility are within normal limits. Mild concentric left ventricular hypertrophy is observed. Normal cardiac chamber sizes. Functionally benign heart valves. There is mild dilatation of the ascending aorta. There is mild dilatation of the aortic root. Since the prior echocardiogram completed 05/01/15, pertinent change is prior normal ascending aortic size reported and prior normal aortic root size reported. Measurements Name Value Normal Range RVIDd (AP) 2D 3.1 cm (0.9 - 2.6) RVDdMajor (2D) 2.1 cm (2.2 - 4.4) RAd ISD 4CH 4.8 cm (3.4 - 4.9) RA (A4C)W 2.9 cm (2.9 - 4.6) IVSd (2D) 1.2 cm (0.6 - 1) LVPWd (2D) 1.1 cm (0.6 - 1) LVIDd (2D) 4.3 cm (3.6 - 5.4) LVIDs (2D) 3.1 cm - LV FS (2D) 28 % (25 - 45) Aortic Annulus 2.3 cm (1.4 - 2.6) Ao root diameter (2D) 3.7 cm (2.1 - 3.5) Ascending Ao 3.5 cm (2.1 - 3.4) Aortic arch 3.2 cm (1.8 - 3.4) LA dimension (AP) 2D 3.8 cm (2.3 - 3.8) LAd ISD 4CH 5.3 cm (2.9 - 5.3) LA ISD 4CH W 4 cm (2.5 - 4.5) Name Value Normal Range LA ESV BP (A/L) index 23 ml/m2 - Name Value Normal Range MV E-wave Vmax 0.8 m/sec - MV deceleration time 203 msec - MV A-wave Vmax 0.4 m/sec - MV E:A ratio 2 ratio - P. vein S-wave Vmax 0.3 m/sec - P. vein D-wave Vmax 0.4 m/sec - P. vein S:D Vmax ratio 0.7 ratio - P. vein A-wave duration 100 msec - LV septal e' Vmax 0.09 m/sec - LV lateral e' Vmax 0.11 m/sec - LV E:e' septal ratio 9 ratio - LV E:e' lateral ratio 7 ratio - Name Value Normal Range AV Vmax 0.9 m/sec - AV VTI 38 cm - AV peak gradient 3.2 mmHg - AV mean gradient 2 mmHg - LVOT Vmax 0.8 m/sec - LVOT VTI 19 cm - LVOT peak gradient 2.6 mmHg - LVOT mean gradient 1 mmHg - MALU Vmax 0.4 m/sec - Name Value Normal Range TR Vmax 2 m/sec - TR peak gradient 16 mmHg - RAP 3 mmHg - RVSP 24 mmHg - IVC diameter 2.3 cm - Name Value Normal Range PV Vmax 0.5 m/sec - PV peak gradient 1 mmHg -
[2018-03-15] MEDS ORDERED: Calcium/Vitamin D TAB 250/125* TAB PO SCH (18:00)
[2018-03-15] MEDS ORDERED: MAGNESIUM OXIDE 250 MG PO SCH (18:00)
--- NOTE | 2018-03-15 22:21 | DS ---
CC: Dr. Casas; Dr. San; Dr. Narayan; Dr. Thakur; Dr. Florez; Dr. Mccracken * DISCHARGE SUMMARY: DATE OF ADMISSION: 03/14/18 DATE OF DISCHARGE: 03/15/18 PRIMARY CARE PROVIDER: Dr. Casas. DISCHARGE DIAGNOSIS: Atrial fibrillation with rapid ventricular response. The patient converted to normal sinus rhythm on Cardizem drip. SECONDARY DIAGNOSES: 1. History of hyperlipidemia. 2. History of Crohn's. 3. History of Waldenstrom's macroglobulinemia. 4. History of nephrolithiasis. 5. History of primary sclerosing cholangitis. 6. 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 7. History of possible paroxysmal atrial fibrillation for which the patient was evaluated outpatient, but never documented until current hospital stay. 8. History of benign prostatic hypertrophy. MEDICATIONS AT DISCHARGE: Include 1. Eliquis 5 mg p.o. b.i.d. The remaining medications are unchanged apart from that the patient's medication Imbruvica was discontinued and the remaining medications are as follows: 1. Vitamin C 500 mg daily. 2. Calcium carbonate with vitamin D 1 capsule daily. 3. Vitamin D 1000 units daily. 4. Fluorouracil 5% topical daily p.r.n. 5. Hydrocortisone 15 mg q.a.m., 5 mg q.p.m. and 15 mg q. noon. 6. Levothyroxine 125 mcg daily. 7. Mag-Ox 400 mg daily. 8. Metoprolol succinate 75 mg daily. 9. Multivitamin 1 tablet daily. 10. Testosterone gel 10 g topical q.a.m. LABORATORY DATA AND STUDIES PERFORMED DURING THE HOSPITAL STAY: Included: The patient's troponins were 0 to 0.01 throughout his hospital stay. The patient's TSH was 0.04 consistent with his hypopituitarism, free T4 was 1.01, free T3 was 2.5, total T3 of 94, total T4 of 3.8. The patient's creatinine at admission was unchanged from his baseline which was 1.29. On 03/15/18, white blood cell count of 5.4, hemoglobin of 14.7, hematocrit of 41, and platelets of 137,000. Transthoracic echocardiogram was pending at the time of dictation. HOSPITALIZATION COURSE: Radnell Alexandra is a 72-year-old male who has history of Waldenstrom's macroglobulinemia and was just started at the beginning of February 2018 on Imbruvica for it. The patient stated that in the past he was on Imbruvica in 2014 when he was diagnosed with bleeding pituitary tumor that needed to be resected. Imbruvica can cause atrial fibrillation in less than 9% of cases as reviewed from medical literature. The patient stated that approximately a week after he was started on the medication he started feeling palpitations. In fact, he went to see Dr. Thakur from Cardiology on 03/12/18 in regards to palpitations and his dose of metoprolol succinate was increased from 50 to 75 mg daily. Nevertheless, on 03/14/18 at 3 p.m. he started experiencing palpitations and he came to the hospital with atrial fibrillation with rapid ventricular response. He was placed on Cardizem drip and converted at approximately 2 a.m. on . I discussed the case with Dr. Mccracken from Cardiology, who recommended no change in the patient's current cardiac medications. The anticoagulation was up to the patient's oncologist and Dr. San's service saw the patient in consultation during his hospital stay and recommended Eliquis at 5 mg b.i.d. His Imbruvica is going to be held. FOLLOWUP: The patient is recommended to follow up with Dr. Thakur in approximately 1 week. The patient also is scheduled for a followup with Dr. San on 03/18/18 at 1 p.m. For physical exam at discharge, please see daily progress notes. [id number]/[facility] #: [id number] [facility] HOSPITALMick
== END 2018-03-15 15:50 | disposition home or self-care (01) ==
LOC: ED 17:01 → MEDTELE 20:13
PROVIDERS: ADMIT Hospitalist; ATTEND Internal Medicine
DX: I48.91 Unspecified atrial fibrillation (principal); E78.5 Hyperlipidemia, unspecified; R00.2 Palpitations; R07.9 Chest pain, unspecified; Z87.891 Personal history of nicotine dependence; C88.0 Waldenstrom macroglobulinemia; N20.0 Calculus of kidney; N40.1 Benign prostatic hyperplasia with lower urinary tract symptoms; Z87.19 Personal history of other diseases of the digestive system; E23.0 Hypopituitarism
CPT/HCPCS: 36415; 71045; 80053; 83605; 83735; 83880; 84436; 84439; 84443; 84479; 84481; 84484; 85025; 85610; 93005; 93306; 99232; 99283; A9270-GY; G0378; J3490

== ENCOUNTER 2019-01-15 05:49 | Observation (INO) | payer MEDICARE, BC ==
[~2019-01-15 05:49] MED LIST changes: -Buffered Lidocaine 0.9% SYRIN* 5 ML/SYR SYRINGE INTRADERM ONE; +Buffered Lidocaine 1% SYRIN* 1 ML/SYRINGE INTRADERM ONE; -Sodium Citrate/Citric Acid* 15 ML UDC PO ONE
[2019-01-15] MEDS ORDERED: Famotidine IV* 10 MG/ML 2 ML (20 mg) IV ONE (06:00)
[2019-01-15] MEDS ORDERED: Lactated Ringers 1000 ML Bag* 1,000 ML IV SCH ×2 (06:00→10:00)
[2019-01-15] MEDS ORDERED: Dexamethasone IV* 4 MG/ML 1 ML (4 MG) IV SLOW PU ONE (06:00)
[2019-01-15] MEDS ORDERED: Famotidine IV* 10 MG/ML 2 ML (20 mg) ONE (06:50)
[2019-01-15] MEDS ORDERED: Dexamethasone IV* 4 MG/ML 1 ML (4 MG) ONE (06:50)
[2019-01-15] MEDS ORDERED: ceFAZolin 2 GM PREMIX in ORs 2 GM/50 ML BAG IVPB ONE (06:50)
[2019-01-15] MEDS ORDERED: Propofol* 10 MG/ML 20 ML BTL ONE (06:57)
[2019-01-15] MEDS ORDERED: Midazolam* 1 MG/ML 2 ML VIAL (2 MG) ONE (06:57)
[2019-01-15] MEDS ORDERED: Succinylcholine* 20 MG/ML 10 ML VIAL ONE (06:57)
[2019-01-15] MEDS ORDERED: Lidocaine 2% PF * 5 ML VIAL ONE (06:57)
[2019-01-15] MEDS ORDERED: fentaNYL* 50 MCG/ML 2 ML VIAL (100 MCG VIAL) ONE (06:57)
[2019-01-15] MEDS ORDERED: Lidocain 1% EPI 1:100,000 * 30 ML MDV ONE (07:01)
[2019-01-15] MEDS ORDERED: Bacitracin INJECTION* 50,000 UNITS ONE (07:02)
[2019-01-15] MEDS ORDERED: Thrombin 5,000 UNITS* 1 APPLIC KIT - topical use - TOPICAL ONE (07:02)
[2019-01-15] MEDS ORDERED: Hydrocortisone INJ* 100 MG VIAL ONE (07:04)
[2019-01-15] MEDS ORDERED: DiMENhydriNATE IV* 50 MG/ML VIAL IV PUSH PRN (07:22)
[2019-01-15] MEDS ORDERED: oxyCODONE/Acetamin 5/325 MG* TAB PO PRN (07:22)
[2019-01-15] MEDS ORDERED: fentaNYL* 50 MCG/ML 2 ML VIAL (100 MCG VIAL) IV PRN (07:22)
[2019-01-15] MEDS ORDERED: HYDROcodone/ACETAMIN 5-325 MG* 1 TAB PO PRN (07:22)
[2019-01-15] MEDS ORDERED: PROCHLORPERAZINE INJ 5 MG/ML 2 ML VIAL IV PRN (07:22)
[2019-01-15] MEDS ORDERED: Naloxone* 0.4 MG/ML 1 ML VIAL IV PRN (07:22)
[2019-01-15] MEDS ORDERED: EPHEDrine (Pressors)* 50 MG/ML VIAL ONE (07:47)
[2019-01-15] MEDS ORDERED: Phenylephrine 40 MCG/ML SYRINGE ONE (07:51)
[2019-01-15] MEDS ORDERED: Glycopyrrolate IV* 0.2 MG/ML 1 ML VIAL ONE (08:07)
[2019-01-15] MEDS ORDERED: Phenylephrine 10 MG/ML VIAL* 1 ML VIAL ONE (08:12)
[2019-01-15] MEDS ORDERED: Ondansetron INJ* 2 MG/ML VIAL ONE (08:53)
[2019-01-15] MEDS ORDERED: Magnesium Hydroxide LIQ* 30 ML UDC PO PRN (09:14)
[2019-01-15] MEDS ORDERED: Ondansetron INJ* 2 MG/ML VIAL IV PRN (09:14)
[2019-01-15] MEDS ORDERED: Acetaminophen TAB* 325 MG ONE (09:57)
[2019-01-15] MEDS: Acetaminophen TAB* 325 MG PO PRN ×2 (09:58→15:41)
[2019-01-15] MEDS: HYDROcodone/ACETAMIN 5-325 MG* 1 TAB PO PRN ×2 (19:18→23:22)
[2019-01-16] MEDS: HYDROcodone/ACETAMIN 5-325 MG* 1 TAB PO PRN ×2 (03:33→08:02)
[2019-01-16] MEDS ORDERED: Levothyroxine TAB* 125 MCG TAB PO SCH (06:00)
--- NOTE | 2019-01-16 07:30 | PN ---
Progress Note - Progress Note Date of Service: 01/16/19 SOAP: Subjective: []POD # 1 C/O generalized muscle aching Pre op leg pain relieved Objective: []Dressing intact Neuro intact Assessment: []Satis post op course Plan: []D/C today D/C Instructions given
[2019-01-16 07:55] VITALS: BP 114/67
[2019-01-16] MEDS ORDERED: Metoprolol Tartrate TAB* 25 MG PO SCH (09:00)
--- NOTE | 2019-01-23 09:08 | OP ---
DATE OF OPERATION: 01/15/19 - ROOM #351 DATE OF : 45 PRIMARY SURGEON: Dr. Ramesh Sewell. INFECTION CONTROL MANAGER: DIVYA Higuera. ANESTHESIA: General. PRE-OP DIAGNOSIS: Recurrent herniated nucleus pulposus, L4-5 on the left. POST-OP DIAGNOSIS: Recurrent herniated nucleus pulposus, L4-5 on the left. OPERATIVE PROCEDURE: Redo lumbar diskectomy at L4-5 on the left with microdissection. DESCRIPTION OF PROCEDURE: After satisfactory general anesthesia was obtained, the patient was placed on the operating table in the prone position with the chest supported on Paco frame and the back slightly flexed. The lumbar region was then clipped, prepped and draped in a sterile manner for lumbar laminectomy, and a skin incision outlined from along the previous incision from L4 to L5. This incision was infiltrated with 1% Xylocaine with epinephrine, after which it was turned down sharply to the level of the lumbar fascia and scar tissue. The fascia and scar was divided along the spinous processes of L4 and L5 and the paraspinal musculature, and scar tissue stripped away from these posterior elements using the periosteal elevator and monopolar cautery. Intraoperative x-ray was obtained verifying the proper L4-5 interspace, after which curettes were used to dissect free the previous laminotomy defect. Utilizing the Midas Ralph drill, additional superior exposure was obtained by removing some more of the inferior aspect of the L4 lamina. Laterally, additional bone was removed as well. At this point of the procedure, the operative microscope was brought into the field and the remainder of the procedure was done under microscopic visualization. Utilizing microdissection, epidural venous structures were coagulated and divided. There was noted to be abundant scar tissue adherent to the dura. Ultimately, a plane was developed between the dura and scar tissue and recurrent disk fragments were removed. The opening into the disk space itself was then enlarged and the disk space cleared of any loose disk material using pituitary forceps and curettes. It was felt that a satisfactory decompression had been achieved. After assuring adequate hemostasis, the wound was thoroughly irrigated, after which the fascia was reapproximated with 0 Vicryl suture, the subcutaneous tissue was closed with 3-0 Vicryl suture, and the skin closed with skin clips. The estimated blood loss was less than 50 cc and the final sponge, padding and needle counts were correct. The patient was taken to the recovery room, extubated, and in stable condition. [id number]/[facility] #: [id number] MTDMick
--- NOTE | 2019-02-05 22:34 | DS ---
DISCHARGE SUMMARY: DATE OF ADMISSION: 01/15/19 DATE OF DISCHARGE: 01/16/19 ATTENDING PHYSICIAN: Dr. Sewell.* (DICTATED BY DIVYA AVILA) DISCHARGE DIAGNOSES: 1. Recurrent herniated nucleus pulposus, L4-5, left. 2. Hypothyroidism. SPECIAL PROCEDURES: Redo lumbar diskectomy L4-5 left. HOSPITAL COURSE: This 73-year-old male underwent a lumbar diskectomy L4-5 on the left on 01/23/18, after which he recovered well. He presented in the office on 12/10/18 with recurrent left lower extremity pain, numbness, tingling that began approximately 2 months prior. MRI of the lumbar spine was obtained for evaluation, showed recurrent disk displacement at L4-5 on the left. Considering the severity of symptoms and his inability to improve with conservative treatment, he elected for surgical intervention. On the day of admission, he was taken to surgery where under general anesthesia, a lumbar diskectomy at L4-5 on the left re-do operation was carried out. Postoperatively , the left lower extremity symptoms were again improving, although the numbness and tingling were persistent. He was ambulating independently, and he was eating, drinking, and voiding without difficulty. Pain was well controlled with oral pain medication. On the first postoperative day, the patient was discharged home to the care of his family member. At the time of the patient's discharge, his condition was stable. DISCHARGE MEDICATIONS: [place] 5/325 mg 1 to 2 tabs by mouth every 4 hours as needed for pain. FOLLOWUP: He will be seen in the office in approximately 2 weeks. DISCHARGE INSTRUCTIONS: Wound care and activity level were discussed with the patient and information on this was provided. DIVYA AVILA [id number]/[facility] #: [id number] [facility]OS[facility]ITALMick
== END 2019-01-16 09:20 | disposition home or self-care (01) ==
LOC: OR 05:49 → SSU 10:26
PROVIDERS: ADMIT Neurological Surgery; ATTEND Neurological Surgery
DX: M51.26 Other intervertebral disc displacement, lumbar region (principal); M79.605 Pain in left leg; Z79.899 Other long term (current) drug therapy; Z87.442 Personal history of urinary calculi; K50.90 Crohn's disease, unspecified, without complications; I48.91 Unspecified atrial fibrillation; N40.0 Benign prostatic hyperplasia without lower urinary tract symptoms; Z85.79 Personal history of other malignant neoplasms of lymphoid, hematopoietic and related tissues
CPT/HCPCS: 72100; A9270-GY; G0378; J0330; J0690; J1100; J1720; J2250; J2405; J2704; J3010

== ENCOUNTER → 2019-07-17 10:18 | Day surgery (SDC) | payer MEDICARE, BC ==
[~2019-07-17 10:18] MED LIST changes: -Buffered Lidocaine 1% SYRIN* 1 ML/SYRINGE INTRADERM ONE; +Heparin 2 UNITS/ML IVPREMIX* 2,000 ML IV ONE; +Heparin(*) 1000 UNIT/ML 10 ML VIAL CATH LAB IV ONE; +Iohexol 350 (CONTRAST) 200 ML MDV IV ONE; +Lidocaine 1% INJ* 10 MG/ML 30 ML SDV ONE; +Midazolam* 1 MG/ML 5 ML VIAL (5 MG) ONE; +NS 0.9% 1000 ML** 1,000 ML IV SCH; +VERAPAMIL 2.5 MG/ML 2 ML VIAL ** 5 mg/2 ml ONE; +fentaNYL* 50 MCG/ML 2 ML VIAL (100 MCG VIAL) ONE; +nitroGLYCERIN DRIP* 25,000 MCG/250 ML BTL ONE
[2019-07-17 15:54] VITALS: BP 120/74
--- NOTE | 2019-07-18 12:54 | CATH ---
CC: Dr. Casas; Dr. Shore; Roopa Bravo NP * CATH REPORT: DATE OF PROCEDURE: 07/17/19 - [facility] CATH PRIMARY CARE PHYSICIAN: Dr. Casas. CARDIOLOGISTS: Dr. Shore and Roopa Bravo NP. PROCEDURE: Right radial artery access, bilateral selective coronary cineangiography. HISTORY: A 73-year-old male referred for outpatient coronary angiography for evaluation of atypical chest pain with CT angiogram reporting 50% to 70% left main stenosis. He has a history of chronic fatigue with a history of paroxysmal atrial fibrillation as well as Waldenstrom's macro gammaglobulinemia. PROCEDURE ACCESS: Right radial artery sheath 6F slender. MEDICATIONS: 1. Subcu lidocaine. 2. IV Versed. 3. IV fentanyl. 4. Heparin 300 units. 5. Verapamil 3 mg. 6. Nitroglycerin 300 mcg IA. DIAGNOSTIC CATHETERS: 5F TIG4, 5FL 4. HEMODYNAMICS: Initial AO 94/59, final BP 107/64. ANGIOGRAPHY: RCA: The RCA is large, dominant with a large PDA. There is a localized plaque in the aortic wall adjacent to the RCA ostium. The RCA has scattered mild luminal irregularity, no significant stenosis. Left main: The left main is large, has inferior mild luminal irregularity, has no significant stenosis, hence was not evaluated with IVUS or FFR. LAD: The LAD is large with somewhat slow flow, it supplies a moderate mid diagonal, followed by another moderate diagonal. Distally, the LAD wraps around the apex. The LAD has no significant stenosis. Circumflex: The circumflex is not dominant, is large with a moderate ramus, a large first marginal which has proximal luminal irregularity without significant stenosis, the circumflex ends with a very small posterolateral branch. CONCLUSION: 1. No significant obstructive coronary artery disease, including specifically the left main. 2. False positive CT angiogram for left main stenosis. 3. Successful right radial artery access. [id number]/[facility] #: [id number] [facility]ick
== END | disposition home or self-care (01) ==
LOC: CHICATH 10:18
PROVIDERS: ATTEND Internal Medicine Cardiovascular Disease
DX: I48.0 Paroxysmal atrial fibrillation (principal); R07.89 Other chest pain; R53.83 Other fatigue
CPT/HCPCS: 93454; 99156; 99157; J1644; J2250; J3010

== ENCOUNTER 2021-07-13 09:48 | Inpatient (IN) ==
[~2021-07-13 09:48] MED LIST changes: +Acetaminophen IV 1 GM/100ML 100 ML IV ONE; +Buffered Lidocaine 1% SYRIN 1 ml INTRADERM ONE; +DiMENhydriNATE IV 50 mg/ml 1 ml VIAL IV PUSH PRN; +HYDROmorphone 1 MG/1 ML SYRINGE IV PRN; -Heparin 2 UNITS/ML IVPREMIX* 2,000 ML IV ONE; -Heparin(*) 1000 UNIT/ML 10 ML VIAL CATH LAB IV ONE; -Iohexol 350 (CONTRAST) 200 ML MDV IV ONE; +Lactated Ringers 1000 ml BAG 1,000 ML IV SCH; -Lidocaine 1% INJ* 10 MG/ML 30 ML SDV ONE; -Midazolam* 1 MG/ML 5 ML VIAL (5 MG) ONE; -NS 0.9% 1000 ML** 1,000 ML IV SCH; +Naloxone 0.4 mg VIAL 0.4 mg/ml 1 ml VIAL IV PRN; +Ondansetron 4 mg VIAL 2 MG/ML 2 ml VIAL IV PRN; -VERAPAMIL 2.5 MG/ML 2 ML VIAL ** 5 mg/2 ml ONE; -fentaNYL* 50 MCG/ML 2 ML VIAL (100 MCG VIAL) ONE; -nitroGLYCERIN DRIP* 25,000 MCG/250 ML BTL ONE
[2021-07-13] MEDS ORDERED: ceFAZolin 2 GM in NS PREMIX 2 GM/100 ML BAG IVPB ONE (10:18)
[2021-07-13] MEDS ORDERED: Buffered Lidocaine 1% SYRIN 1 ml INTRADERM ONE (10:18)
[2021-07-13] MEDS ORDERED: Acetaminophen IV 1 GM/100ML 100 ML IV ONE (10:18)
[2021-07-13] MEDS ORDERED: Vancomycin 1,000 MG VIAL ONE (10:47)
[2021-07-13] MEDS ORDERED: Bupivacaine 0.25% SDV 30 ML ONE (10:48)
[2021-07-13] MEDS ORDERED: ceFAZolin VIAL VIAL ONE (10:48)
[2021-07-13] MEDS ORDERED: Midazolam 2 mg/2 ml VIAL 1 mg/ml 2 ml VIAL (2 mg) ONE (10:50)
[2021-07-13] MEDS ORDERED: Dexamethasone IV 4 MG/ML VIAL 1 ml VIAL ONE (10:50)
[2021-07-13] MEDS ORDERED: Rocuronium 50 mg VIAL 10 mg/ml 5 ml VIAL (50 mg) ONE ×2 (10:50→13:04)
[2021-07-13] MEDS ORDERED: Lidocaine 2% PF 5 ML VIAL ONE (10:50)
[2021-07-13] MEDS ORDERED: fentaNYL 100 mcg/2 ml 50 MCG/ML VIAL ONE ×3 (10:50→14:37)
[2021-07-13] MEDS ORDERED: Propofol 10 MG/ML 20 ML BTL ONE ×2 (10:50→13:04)
[2021-07-13] MEDS ORDERED: Ondansetron 4 mg VIAL 2 MG/ML 2 ml VIAL ONE (10:50)
[2021-07-13] MEDS ORDERED: BUPIVACAINE **LIPOSOME/PF 13.3 MG/ML (266MG/ 20ML) VIAL (RESTRICTED) INFIL ONE (11:00)
[2021-07-13] MEDS ORDERED: Hydrocortisone INJ 100 MG/2ML 2 ML VIAL ONE (11:12)
[2021-07-13] MEDS ORDERED: HYDROmorphone 1 MG/1 ML SYRINGE ONE ×2 (12:04→12:55)
[2021-07-13] MEDS ORDERED: Phenylephrine IV 10 MG/ML 1 ml VIAL ONE (13:26)
[2021-07-13] MEDS ORDERED: EPHEDrine (Pressors) 50 MG/ML VIAL ONE (13:31)
[2021-07-13] MEDS ORDERED: diPHENhydraMINE IV 50 MG/ML 1 ml VIAL (BENADRYL) IV PRN (14:29)
[2021-07-13] MEDS ORDERED: Ondansetron 4 mg VIAL 2 MG/ML 2 ml VIAL IV PRN (14:29)
[2021-07-13] MEDS ORDERED: Lactulose 30 ml UDC PO PRN (14:29)
[2021-07-13] MEDS ORDERED: diPHENhydraMINE 25 mg TAB PO PRN (14:29)
[2021-07-13] MEDS ORDERED: Magnesium Hydroxide LIQ 30 ML UDC PO PRN (14:29)
[2021-07-13] MEDS ORDERED: Ondansetron ODT 4 mg TAB 4 MG TAB PO PRN (14:29)
[2021-07-13] MEDS: fentaNYL 100 mcg/2 ml 50 MCG/ML VIAL IV PRN ×4 (14:39→15:15)
[2021-07-13] MEDS ORDERED: Lactated Ringers 1000 ml BAG 1,000 ML IV SCH (15:00)
[2021-07-13] MEDS ORDERED: Morphine 2 MG/ML SYRINGE ONE (16:17)
[2021-07-13] MEDS: ceFAZolin 1 GM ADVAN 1 GM in NS 0.9% 50 ML 50 ML IVPB SCH (18:10)
[2021-07-13] MEDS: Magnesium Hydroxide LIQ 30 ML UDC PO SCH (20:07)
[2021-07-13] MEDS: Morphine 2 MG/ML SYRINGE IV PRN (20:16)
[2021-07-14] MEDS: ceFAZolin 1 GM ADVAN 1 GM in NS 0.9% 50 ML 50 ML IVPB SCH ×2 (01:52→09:53)
[2021-07-14 07:07] LABS: Hematocrit 32 % (42-52); Hemoglobin 10.7 g/dL (14.0-18.0); Mean Platelet Volume 8.1 fL (7.4-10.4); Platelet Count 111 10^3/uL (150-450)
[2021-07-14 07:22] LABS: Calcium 8.5 mg/dL (8.6-10.3); Potassium 4.9 mmol/L (3.5-5.0)
[2021-07-14 09:17] LABS: Magnesium 1.8 mg/dL (1.9-2.7)
[2021-07-14] MEDS: Vitamin THERAPEUTIC TAB PO SCH (09:23)
[2021-07-14] MEDS: Magnesium Hydroxide LIQ 30 ML UDC PO SCH ×2 (09:27→21:01)
[2021-07-14] MEDS: Morphine 2 MG/ML SYRINGE IV PRN (20:17)
[2021-07-15 06:35] LABS: Hematocrit 29 % (42-52); Hemoglobin 9.8 g/dL (14.0-18.0); Platelet Count 96 10^3/uL (150-450)
[2021-07-15 06:42] LABS: Calcium 8.5 mg/dL (8.6-10.3); Potassium 4.6 mmol/L (3.5-5.0)
[2021-07-15] MEDS: Vitamin THERAPEUTIC TAB PO SCH (08:53)
[2021-07-15] MEDS: Magnesium Hydroxide LIQ 30 ML UDC PO SCH ×2 (08:54→20:59)
[2021-07-15] MEDS ORDERED: NS 0.9% 1000 ml BAG 1,000 ML IV ONE (14:38)
[2021-07-16 06:01] LABS: Hematocrit 25 % (42-52); Hemoglobin 8.6 g/dL (14.0-18.0); Mean Platelet Volume 8.2 fL (7.4-10.4); Platelet Count 96 10^3/uL (150-450)
[2021-07-16] MEDS: Vitamin THERAPEUTIC TAB PO SCH (08:14)
[2021-07-16] MEDS: Magnesium Hydroxide LIQ 30 ML UDC PO SCH ×2 (08:14→22:24)
[2021-07-16 15:08] LABS: Hematocrit 26 % (42-52); Hemoglobin 8.5 g/dL (14.0-18.0); Mean Corpuscular HGB Conc 33 g/dL (31-36); Mean Corpuscular Hemoglobin 27 pg (27-31); Mean Corpuscular Volume 82 fL (80-94); Mean Platelet Volume 8.6 fL (7.4-10.4); Platelet Count 118 10^3/uL (150-450); Red Blood Count 3.12 10^6 /uL (4.18-5.48); Red Cell Distribution Width 16 % (10-15); White Blood Count 10.1 10^3/uL (3.5-10.8)
[2021-07-16] MEDS ORDERED: cefTRIAXone 1 gm/50 mL NS BAG 1 GM/50 ML BAG IVPB SCH (17:00)
[2021-07-16 21:07] LABS: Hematocrit 24 % (42-52); Mean Corpuscular HGB Conc 34 g/dL (31-36); Mean Corpuscular Hemoglobin 27 pg (27-31); Mean Corpuscular Volume 81 fL (80-94); Mean Platelet Volume 8.4 fL (7.4-10.4); Platelet Count 114 10^3/uL (150-450); Red Blood Count 2.92 10^6 /uL (4.18-5.48); Red Cell Distribution Width 16 % (10-15); White Blood Count 10.7 10^3/uL (3.5-10.8)
[2021-07-17 00:01] LABS: Urine Appearance Clear; Urine Bilirubin Negative (Negative); Urine Blood Negative (Negative); Urine Color Yellow; Urine Glucose Negative (Negative); Urine Ketones Trace (Negative); Urine Nitrite Negative (Negative); Urine Protein Negative (Negative); Urine Specific Gravity 1.014 (1.002-1.030); Urine Urobilinogen Negative (Negative)
[2021-07-17 06:16] LABS: Hematocrit 23 % (42-52); Hemoglobin 7.7 g/dL (14.0-18.0); Mean Platelet Volume 8.4 fL (7.4-10.4); Platelet Count 116 10^3/uL (150-450)
[2021-07-17] MEDS ORDERED: Furosemide 20 mg/2 ml IV VIAL IV ONE (08:38)
[2021-07-17] MEDS: Vitamin THERAPEUTIC TAB PO SCH (08:53)
[2021-07-17] MEDS: Magnesium Hydroxide LIQ 30 ML UDC PO SCH ×2 (08:54→22:08)
[2021-07-17 08:58] LABS: Calcium 8.6 mg/dL (8.6-10.3); Potassium 3.8 mmol/L (3.5-5.0)
[2021-07-17 12:09] LABS: Hematocrit 23 % (42-52); Hemoglobin 7.6 g/dL (14.0-18.0)
[2021-07-18 05:58] LABS: Hematocrit 21 % (42-52); Hemoglobin 6.9 g/dL (14.0-18.0); Mean Corpuscular HGB Conc 33 g/dL (31-36); Mean Corpuscular Hemoglobin 27 pg (27-31); Mean Corpuscular Volume 84 fL (80-94); Platelet Count 147 10^3/uL (150-450); Red Blood Count 2.53 10^6 /uL (4.18-5.48); Red Cell Distribution Width 16 % (10-15); White Blood Count 6.3 10^3/uL (3.5-10.8)
[2021-07-18 06:17] LABS: Calcium 8.6 mg/dL (8.6-10.3); Potassium 3.9 mmol/L (3.5-5.0)
[2021-07-18 06:42] LABS: ABS Eosinophils 0.1 10^3/ul (0-0.6); ABS Lymphocytes 0.8 10^3/ul (1.0-4.8); ABS Monocytes 0.4 10^3/ul (0-0.8); ABS Neutrophils 4.9 10^3/ul (1.5-7.7); ABS Nucleated RBC 0.1 10^3/ul; Eosinophil % 1.2 %; Lymphocyte % 12.9 %; Nucleated Red Blood Cells % 1.4
[2021-07-18] MEDS: Vitamin THERAPEUTIC TAB PO SCH (09:06)
[2021-07-18] MEDS: Magnesium Hydroxide LIQ 30 ML UDC PO SCH ×2 (09:07→20:40)
[2021-07-19 05:45] LABS: Hematocrit 25 % (42-52); Hemoglobin 8.2 g/dL (14.0-18.0); Mean Corpuscular HGB Conc 34 g/dL (31-36); Mean Corpuscular Hemoglobin 28 pg (27-31); Mean Corpuscular Volume 82 fL (80-94); Mean Platelet Volume 8.1 fL (7.4-10.4); Platelet Count 159 10^3/uL (150-450); Red Blood Count 2.97 10^6 /uL (4.18-5.48); Red Cell Distribution Width 16 % (10-15); White Blood Count 7.2 10^3/uL (3.5-10.8)
[2021-07-19 06:01] LABS: Potassium 3.5 mmol/L (3.5-5.0)
[2021-07-19] MEDS ORDERED: NS 0.9% 500 ml BAG 500 ML IV ONE (08:00)
[2021-07-19] MEDS: Magnesium Hydroxide LIQ 30 ML UDC PO SCH ×2 (08:20→20:14)
[2021-07-19] MEDS: Vitamin THERAPEUTIC TAB PO SCH (08:20)
[2021-07-19 08:21] LABS: INR 1.17 (0.86-1.15)
[2021-07-19] MEDS ORDERED: Heparin 2 UNITS/ML 1000 mls 1,000 ML IV ONE (13:41)
[2021-07-19] MEDS ORDERED: fentaNYL 100 mcg/2 ml 50 MCG/ML VIAL ONE (13:41)
[2021-07-20 06:08] LABS: Hematocrit 25 % (42-52); Hemoglobin 8.4 g/dL (14.0-18.0); Mean Corpuscular HGB Conc 33 g/dL (31-36); Mean Corpuscular Hemoglobin 27 pg (27-31); Mean Corpuscular Volume 82 fL (80-94); Mean Platelet Volume 7.8 fL (7.4-10.4); Platelet Count 189 10^3/uL (150-450); Red Blood Count 3.08 10^6 /uL (4.18-5.48); Red Cell Distribution Width 16 % (10-15); White Blood Count 7.3 10^3/uL (3.5-10.8)
[2021-07-20 06:26] LABS: Calcium 8.9 mg/dL (8.6-10.3); Potassium 3.7 mmol/L (3.5-5.0)
[2021-07-20 07:19] LABS: ABS Lymphocytes 0.7 10^3/ul (1.0-4.8); ABS Monocytes 0.4 10^3/ul (0-0.8); ABS Neutrophils 6.2 10^3/ul (1.5-7.7); Eosinophil % 0.4 %; Lymphocyte % 9.6 %; Nucleated Red Blood Cells % 0.5
[2021-07-20 07:41] VITALS: BP 144/80
[2021-07-20] MEDS: Magnesium Hydroxide LIQ 30 ML UDC PO SCH (09:12)
[2021-07-20] MEDS: Vitamin THERAPEUTIC TAB PO SCH (09:14)
[2021-07-20 10:46] LABS: Hematocrit for Retic CNT 25 % (42-52); Immature Retic Fraction 0.67; RBC Retic Count 3.06 10^6/uL (4.18-5.48)
[2021-07-20 11:42] LABS: % Iron Saturation 13 % (15-55); Iron 34 ug/dL (50-212); Total Iron Binding Capacity 259 mcg/dL (250-450); Transferrin 185 mg/dL (203-362); Unsaturated Iron Binding < 244 ug/dL
[2021-07-20 11:45] LABS: Ferritin 186.4 ng/mL (24-336)
[2021-07-20 11:49] LABS: Vitamin B12 509 pg/mL (180-914)
== END 2021-07-20 12:55 | disposition home health service (06) | DRG 470 ==
LOC: OR 09:48 → SSU 09:48
PROVIDERS: ADMIT Orthopaedic Surgery Sports Medicine; ATTEND Orthopaedic Surgery Sports Medicine

== ENCOUNTER 2021-12-14 13:52 | Inpatient (IN) ==
[2021-12-14 14:50] LABS: Hematocrit 30 % (42-52); Hemoglobin 9.9 g/dL (14.0-18.0); Mean Corpuscular HGB Conc 33 g/dL (31-36); Mean Corpuscular Hemoglobin 22 pg (27-31); Mean Corpuscular Volume 68 fL (80-94); Mean Platelet Volume 8.4 fL (7.4-10.4); Platelet Count 213 10^3/uL (150-450); Red Blood Count 4.46 10^6 /uL (4.18-5.48); Red Cell Distribution Width 18 % (10-15); White Blood Count 4.4 10^3/uL (3.5-10.8)
[2021-12-14 15:11] LABS: Albumin 3.3 g/dL (3.2-5.2); Albumin/Globulin Ratio 1.4 (1-3); Calcium 9.2 mg/dL (8.6-10.3); Globulin 2.3 g/dL (2-4); Magnesium 1.9 mg/dL (1.9-2.7); Potassium 4.2 mmol/L (3.5-5.0); Total Bilirubin 0.7 mg/dL (0.2-1.0); Total Protein 5.6 g/dL (6.4-8.9); eGFR CKD-EPI 62.1 (>60)
[2021-12-14 15:54] LABS: Anisocytosis 1+; Microcytosis 2+; Polychromasia 1+
[2021-12-14 15:56] LABS: ABS Lymphocytes 0.6 10^3/ul (1.0-4.8); ABS Monocytes 0.5 10^3/ul (0-0.8); ABS Neutrophils 3.3 10^3/ul (1.5-7.7); Eosinophil % 0.4 %; Lymphocyte % 12.8 %
[2021-12-14 16:03] LABS: High Sensitivity Troponin 1 Hr 5 pg/mL (<20)
[2021-12-14] MEDS ORDERED: NS 0.9% 1000 ml BAG 1,000 ML IV ONE (16:21)
[2021-12-14] MEDS ORDERED: Hydrocortisone INJ 100 MG/2ML 2 ML VIAL IV ONE (16:22)
[2021-12-14 16:53] LABS: Urine Appearance Cloudy; Urine Bilirubin Negative (Negative); Urine Blood Negative (Negative); Urine Color Yellow; Urine Glucose Negative (Negative); Urine Ketones Negative (Negative); Urine Nitrite Negative (Negative); Urine Protein 1+(30 mg/dL) (Negative); Urine Specific Gravity 1.016 (1.002-1.030); Urine Urobilinogen Negative (Negative)
[2021-12-14 16:58] LABS: Urine Bacteria Absent (Absent); Urine Red Blood Cell 2+(6-10/hpf) (Absent); Urine Squamous Epithelial Cell Present (Absent); Urine White Blood Cell Trace(0-5/hpf) (Absent)
[2021-12-14 17:32] LABS: C Reactive Protein 176.78 mg/L (<8.01)
[2021-12-14] MEDS ORDERED: Hydrocortisone INJ 100 MG/2ML 2 ML VIAL IV SCH (19:00)
[2021-12-14 20:44] LABS: Erythrocyte Sed Rate 106 mm/Hr (0-19)
[2021-12-14] MEDS: Hydrocortisone INJ 100 MG/2ML 2 ML VIAL IV SCH (21:16)
[2021-12-14] MEDS ORDERED: Iohexol 350 (CONTRAST) 500 ML MDV IV ONE (23:33)
[2021-12-15] MEDS: Hydrocortisone INJ 100 MG/2ML 2 ML VIAL IV SCH ×3 (02:24→14:37)
[2021-12-15 06:13] LABS: ABS Lymphocytes 0.3 10^3/ul (1.0-4.8); ABS Monocytes 0.3 10^3/ul (0-0.8); Hematocrit 29 % (42-52); Hemoglobin 9.7 g/dL (14.0-18.0); Lymphocyte % 9.1 %; Mean Corpuscular HGB Conc 33 g/dL (31-36); Mean Corpuscular Hemoglobin 23 pg (27-31); Mean Corpuscular Volume 68 fL (80-94); Mean Platelet Volume 8.3 fL (7.4-10.4); Platelet Count 205 10^3/uL (150-450); Red Blood Count 4.28 10^6 /uL (4.18-5.48); Red Cell Distribution Width 18 % (10-15); White Blood Count 3.6 10^3/uL (3.5-10.8)
[2021-12-15 06:25] LABS: C Reactive Protein 168.76 mg/L (<8.01); Calcium 9.1 mg/dL (8.6-10.3); Potassium 3.9 mmol/L (3.5-5.0); eGFR CKD-EPI 78.9 (>60)
[2021-12-15 08:33] LABS: Free T4 1.39 ng/dL (0.61-1.12)
[2021-12-15] MEDS ORDERED: COENZYME Q10 200 MG PO SCH (09:00)
[2021-12-15] MEDS: Multivitamins/Minerals TAB PO SCH (10:00)
[2021-12-15] MEDS: Cholecalciferol (VIT D3) 1,000 unit TAB PO SCH (10:00)
[2021-12-15] MEDS ORDERED: D5LR 1000 ml BAG 1,000 ML IV SCH (15:00)
[2021-12-16 06:28] LABS: ABS Lymphocytes 0.6 10^3/ul (1.0-4.8); ABS Monocytes 0.4 10^3/ul (0-0.8); ABS Neutrophils 4.2 10^3/ul (1.5-7.7); Hematocrit 27 % (42-52); Hemoglobin 8.9 g/dL (14.0-18.0); Lymphocyte % 11.5 %; Mean Corpuscular HGB Conc 33 g/dL (31-36); Mean Corpuscular Hemoglobin 23 pg (27-31); Mean Corpuscular Volume 68 fL (80-94); Mean Platelet Volume 8.2 fL (7.4-10.4); Platelet Count 203 10^3/uL (150-450); Red Blood Count 3.92 10^6 /uL (4.18-5.48); Red Cell Distribution Width 18 % (10-15); White Blood Count 5.3 10^3/uL (3.5-10.8)
[2021-12-16 06:35] LABS: Albumin 2.9 g/dL (3.2-5.2); Albumin/Globulin Ratio 1.3 (1-3); Globulin 2.3 g/dL (2-4); Total Bilirubin 0.5 mg/dL (0.2-1.0); Total Protein 5.2 g/dL (6.4-8.9); eGFR CKD-EPI 79.9 (>60)
[2021-12-16 07:55] LABS: C Reactive Protein 152.89 mg/L (<8.01)
[2021-12-16] MEDS: Multivitamins/Minerals TAB PO SCH (09:10)
[2021-12-16] MEDS: Cholecalciferol (VIT D3) 1,000 unit TAB PO SCH (09:10)
[2021-12-16] MEDS ORDERED: Iohexol 300 (CONTRAST) 10 ML SDV IV ONE (21:12)
[2021-12-16 21:41] LABS: Hepatitis B Surface Antigen Nonreactive (Nonreactive)
[2021-12-16 21:46] LABS: Hepatitis A Ab IgM Negative (Negative)
[2021-12-16 21:47] LABS: Hepatitis B Core IgM Nonreactive (Nonreactive)
[2021-12-16 21:58] LABS: Hepatitis C Antibody Negative (Negative)
[2021-12-17 05:15] LABS: Hematocrit 26 % (42-52); Hemoglobin 8.8 g/dL (14.0-18.0); Mean Corpuscular HGB Conc 34 g/dL (31-36); Mean Corpuscular Hemoglobin 23 pg (27-31); Mean Corpuscular Volume 68 fL (80-94); Mean Platelet Volume 7.9 fL (7.4-10.4); Platelet Count 190 10^3/uL (150-450); Red Blood Count 3.83 10^6 /uL (4.18-5.48); Red Cell Distribution Width 19 % (10-15); White Blood Count 4.8 10^3/uL (3.5-10.8)
[2021-12-17 05:20] LABS: Calcium 8.7 mg/dL (8.6-10.3); Potassium 3.9 mmol/L (3.5-5.0); eGFR CKD-EPI 89.4 (>60)
[2021-12-17] MEDS: Multivitamins/Minerals TAB PO SCH (08:18)
[2021-12-17] MEDS: Cholecalciferol (VIT D3) 1,000 unit TAB PO SCH (08:18)
[2021-12-17 15:22] VITALS: BP 111/63
== END 2021-12-17 16:20 | disposition home or self-care (01) | DRG 644 ==
LOC: ED 13:52 → EDHOLD 17:55 → MEDTELE 21:53
PROVIDERS: ADMIT Internal Medicine; ATTEND Internal Medicine